=== PATIENT | male | born 1950 | race Caucasian/White ===

== ENCOUNTER 2018-04-10 18:43 | Inpatient (IN) ==
--- NOTE | 2018-04-10 19:19 | ED ---
HPI General Chief Complaint: Chest Pain Stated Complaint: Heart/Chest Complaint Time Seen by Provider: 04/10/18 19:16 Source: patient and family () Mode of arrival: ambulatory Limitations: no limitations History of Present Illness HPI narrative: 67-year-old male came to the emergency room brought by his with history of sudden onset chest pain radiating to his back and down both his arms. Patient says that this started half an hour prior to arrival. He has extensive history of coronary artery disease and it felt like his heart attack. Patient says that his last heart attack and stent placement was somewhere around 2006. He says he has 12 stents in his heart as well as carotid artery. Patient is a smoker 1 pack/day. He takes aspirin and clopidogrel among other medications but takes all these medications at night. He says that he did not take his medications yet. Currently he describes his pain as pressure and achiness of both arms. The pain is 8 out of 10. No history of shortness of breath or lightheadedness. Patient is from [place] and is here in [place] for 6 months. He does not have any physicians in the area locally and has never been to [facility] before. 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 Patient was hypertensive upon arrival. When I was in the room the monitoring and evaluation advisor had his blood pressure is 185/105. Related Data Home Medications Medication Instructions Recorded Confirmed calcium carbonate-vitamin D3 1 tab PO DAILY 04/10/18 04/10/18 [Calcium 600 + D(3)] hydrocodone-acetaminophen 1 tab PO Q6H 04/10/18 04/10/18 metoprolol succinate 25 mg PO DAILY 04/10/18 04/10/18 pantoprazole 40 mg PO DAILY 04/10/18 04/10/18 pravastatin 80 mg PO DAILY 04/10/18 04/10/18 sertraline 50 mg PO DAILY 04/10/18 04/10/18 Allergies Allergy/AdvReac Type Severity Reaction Status Date / Time No Known Allergies Allergy Verified 04/10/18 18:50 Review of Systems ROS: all other systems reviewed are negative Cardiovascular Reports chest pain PMFSH History History Provided By: Patient and Family Member () Medical History Medical History Hepatitis C (Acute) Surgical History Surgical History H/O heart artery stent (Acute) Social History Social History Substance History: No History of Abuse Second Hand Smoke Exposure: Yes Smoking Status: Current every day smoker Tobacco Type: Cigarettes How Often Do You Have a Drink Containing Alcohol: Never Exam Narrative Exam Narrative: GENERAL: Awake, alert, anxious, moderate distress SKIN: Focused skin assessment warm/dry. HEAD: Atraumatic. Normocephalic. EYES: Pupils equal and round. No scleral icterus. No injection or drainage. ENT: No nasal bleeding or discharge. Mucous membranes pink and moist. NECK: Trachea midline. No JVD. CARDIOVASCULAR: Regular rate and rhythm. No murmur appreciated. RESPIRATORY: No accessory muscle use. Clear to auscultation. Breath sounds equal bilaterally. GASTROINTESTINAL: Abdomen soft, non-tender, nondistended. Hepatic and splenic margins not palpable. MUSCULOSKELETAL: No obvious deformities. No clubbing. No cyanosis. No edema. NEUROLOGICAL: Awake and alert. No obvious cranial nerve deficits. Motor grossly within normal limits. Normal speech. PSYCHIATRIC: Appropriate mood and affect; insight and judgment normal. Course Initial Documented Vital Signs Temperature 97.3 F L 04/10/18 18:47 Pulse Rate 59 L 04/10/18 18:47 Respiratory Rate 21 04/10/18 18:47 Blood Pressure 178/113 H 04/10/18 18:47 Pulse Oximetry 100 04/10/18 18:47 Last Documented Vital Signs Temperature 98 F 04/13/18 03:36 Pulse Rate 56 L 04/13/18 16:00 Respiratory Rate 20 04/13/18 12:00 Blood Pressure 114/46 L 04/13/18 12:00 Pulse Oximetry 98 04/13/18 03:36 Critical Care Time Critical Care Time: Yes Total Critical Care Time: 45 Attestation: Aggregate critical care time was 45 minutes. Time to perform other separately billable procedures was not included in the critical care time. My time did not include minutes spent treating any other patients simultaneously or on activities that did not directly contribute to the patient's treatment. The services I provided to this patient were to treat and/or prevent clinically significant deterioration that could result in: Chest pain, non-STEMI, nitro drip, heparin bolus and drip I provided critical care services requiring my management, as noted below: Chart data review, documentation time, medication orders and management, vital sign assessments/reviewing monitor data, ordering and reviewing lab tests, ordering and interpreting/reviewing x-rays and diagnostic studies, care of the patient and discussion of the patient with the admitting physicians. Quality Measure Queries AMI Clinical Trial Participant: No ECG initial impression date: 04/10/18 (Twelve-lead EKG was reviewed by me. Normal sinus rhythm, bigeminy, questionable anterior septal ST elevations of the [place] lead. Repeat EKG. Heart rate of 73 bpm.) ECG initial impression time: 19:59 Medical Decision Making MDM Narrative Medical decision making narrative: 7:59 PM after reviewing the repeat EKG that was done at 19:25 I called in for a STEMI alert given the abnormal EKG as well as the description of his pain and the significant past medical history. I electronically sent the EKG photograph to Dr. Head who is on-call for STEMI alerts. He called back and after discussion he did not think the ST elevations met the criteria for stat Laboratory Sample Carrier. He wanted to cancel the STEMI alert but start the patient on nitro and heparin drip and admit to [facility]. N.p.o. after midnight for catheterization tomorrow. I discussed this with the patient and his and they understand. Awaiting for the blood test results. 8:12 PM current blood pressure is 135/75 and chest pain is down to 3 out of 10. I asked for a repeat EKG and the deep T wave inversions in V2, V3, V4 continues and pronounced in V5 at this point. Patient remains hemodynamically stable. Awaiting for the blood test result. Medical Screen Exam Complete: Yes Emergency Medical Condition: Yes Lab Data Result diagrams: 04/13/18 06:34 04/11/18 02:30 Lab Results 04/10/18 04/10/18 04/10/18 Range/Units 19:30 19:30 19:30 WBC 9.6 (4.0-11.0) th/mm3 RBC 4.78 (4.50-5.90) mil/mm3 Hgb 14.5 (13.0-17.0) gm/dL POC Hgb (Calc) 15.0 (13.0-17.0) g/dL Hct 42.9 (39.0-51.0) % POC Hct 44.0 (39-51.0) % MCV 89.8 (80.0-100.0) fL MCH 30.3 (27.0-34.0) pg MCHC 33.8 (32.0-36.0) % RDW 15.4 (11.6-17.2) % Plt Count 351 (150-450) th/mm3 MPV 8.7 (7.0-11.0) fL Neut % (Auto) 53.9 (16.0-70.0) % Lymph % (Auto) 30.9 (9.0-44.0) % Love % (Auto) 12.1 H (0.0-8.0) % Eos % (Auto) 2.3 (0.0-4.0) % Baso % (Auto) 0.8 (0.0-2.0) % Neut # (Auto) 5.2 (1.8-7.7) th/mm3 Lymph # (Auto) 3.0 (1.0-4.8) th/mm3 Love # (Auto) 1.2 H (0.0-0.9) th/mm3 Eos # (Auto) 0.2 (0.0-0.4) th/mm3 Baso # (Auto) 0.1 (0.0-0.2) th/mm3 WBC Differential . Differential Comment Auto diff final PT 11.1 (9.8-11.6) sec INR 1.1 Ratio APTT 28.9 (23.4-31.7) sec Plt Funct P2Y12 Units (194-418) PRU POC Sodium 138 (137-144) mmol/L Sodium 136 (136-145) meq/L POC Potassium 3.8 (3.6-5.0) mmol/L Potassium 3.7 (3.5-5.1) meq/L POC Chloride 100 L (102-111) mmol/L Chloride 102 (98-107) meq/L Carbon Dioxide 24.4 (21.0-32.0) meq/L Anion Gap 10 (5-15) meq/L POC BUN 8 (5-21) mg/dL BUN 9 (7-18) mg/dL Creatinine 0.81 (0.60-1.30) mg/dL POC Creatinine 0.7 (0.6-1.3) mg/dL Estimated GFR Greater than 89 (>89) mL/min POC Glucose 116 H (68-110) mg/dL Random Glucose 108 H (74-106) mg/dL Hemoglobin A1c (4.3-6.0) % Calcium 8.7 (8.5-10.1) mg/dL Total Bilirubin 0.4 (0.2-1.0) mg/dL AST 15 (15-37) U/L ALT 19 (12-78) U/L Alkaline Phosphatase 119 H (45-117) U/L Troponin I Less than 0.02 L (0.02-0.05) ng/mL Total Protein 9.0 H (6.4-8.2) g/dL Albumin 3.3 L (3.4-5.0) g/dL Triglycerides (42-150) mg/dL Cholesterol (120-200) mg/dL LDL Cholesterol, Calc (0-99) mg/dL HDL Cholesterol (40.0-60.0) mg/dL Cholesterol/HDL Ratio Ratio Urine Color (Yellw/Straw) Urine Clarity (Clear) Urine pH (5.0-8.5) Ur Specific [place] (1.002-1.035) Urine Protein (Neg-Trace) mg/dL Urine Glucose (UA) (Negative) mg/dL Urine Ketones (Negative) mg/dL Urine Occult Blood (Negative) Urine Nitrate (Negative) Urine Bilirubin (Negative) Urine Urobilinogen (Less than 2) mg/dL Ur Leukocyte Esterase (Negative) Urine RBC (0-3) /hpf Urine WBC (0-5) /hpf Urine Mucus (Occasional) /lpf Micro UA Comment Ur Microscopic Review Urine Culture Comments Nasal Screen MRSA (PCR) (Negative) Blood Type Blood Type Recheck Antibody Screen 04/11/18 04/11/18 04/11/18 Range/Units 01:14 02:30 02:30 WBC 9.7 (4.0-11.0) th/mm3 RBC 4.50 (4.50-5.90) mil/mm3 Hgb 13.5 (13.0-17.0) gm/dL POC Hgb (Calc) (13.0-17.0) g/dL Hct 40.0 (39.0-51.0) % POC Hct (39-51.0) % MCV 89.0 (80.0-100.0) fL MCH 30.1 (27.0-34.0) pg MCHC 33.8 (32.0-36.0) % RDW 15.4 (11.6-17.2) % Plt Count 313 (150-450) th/mm3 MPV 8.7 (7.0-11.0) fL Neut % (Auto) 53.2 (16.0-70.0) % Lymph % (Auto) 30.6 (9.0-44.0) % Love % (Auto) 12.9 H (0.0-8.0) % Eos % (Auto) 2.7 (0.0-4.0) % Baso % (Auto) 0.6 (0.0-2.0) % Neut # (Auto) 5.2 (1.8-7.7) th/mm3 Lymph # (Auto) 3.0 (1.0-4.8) th/mm3 Love # (Auto) 1.3 H (0.0-0.9) th/mm3 Eos # (Auto) 0.3 (0.0-0.4) th/mm3 Baso # (Auto) 0.1 (0.0-0.2) th/mm3 WBC Differential . Differential Comment Auto diff final PT (9.8-11.6) sec INR Ratio APTT 39.2 H D (23.4-31.7) sec Plt Funct P2Y12 Units (194-418) PRU POC Sodium (137-144) mmol/L Sodium 142 (136-145) meq/L POC Potassium (3.6-5.0) mmol/L Potassium 3.8 (3.5-5.1) meq/L POC Chloride (102-111) mmol/L Chloride 109 H (98-107) meq/L Carbon Dioxide 28.6 (21.0-32.0) meq/L Anion Gap 4 L (5-15) meq/L POC BUN (5-21) mg/dL BUN 8 (7-18) mg/dL Creatinine 0.66 (0.60-1.30) mg/dL POC Creatinine (0.6-1.3) mg/dL Estimated GFR Greater than 89 (>89) mL/min POC Glucose (68-110) mg/dL Random Glucose 94 (74-106) mg/dL Hemoglobin A1c (4.3-6.0) % Calcium 8.3 L (8.5-10.1) mg/dL Total Bilirubin 0.4 (0.2-1.0) mg/dL AST 14 L (15-37) U/L ALT 16 (12-78) U/L Alkaline Phosphatase 104 (45-117) U/L Troponin I 0.56 H (0.02-0.05) ng/mL Total Protein 7.9 D (6.4-8.2) g/dL Albumin 2.9 L (3.4-5.0) g/dL Triglycerides 99 (42-150) mg/dL Cholesterol 113 L (120-200) mg/dL LDL Cholesterol, Calc 61 (0-99) mg/dL HDL Cholesterol 32.6 L (40.0-60.0) mg/dL Cholesterol/HDL Ratio 3.46 Ratio Urine Color (Yellw/Straw) Urine Clarity (Clear) Urine pH (5.0-8.5) Ur Specific [place] (1.002-1.035) Urine Protein (Neg-Trace) mg/dL Urine Glucose (UA) (Negative) mg/dL Urine Ketones (Negative) mg/dL Urine Occult Blood (Negative) Urine Nitrate (Negative) Urine Bilirubin (Negative) Urine Urobilinogen (Less than 2) mg/dL Ur Leukocyte Esterase (Negative) Urine RBC (0-3) /hpf Urine WBC (0-5) /hpf Urine Mucus (Occasional) /lpf Micro UA Comment Ur Microscopic Review Urine Culture Comments Nasal Screen MRSA (PCR) (Negative) Blood Type Blood Type Recheck Antibody Screen 04/11/18 04/11/18 04/11/18 Range/Units 07:59 07:59 23:12 WBC (4.0-11.0) th/mm3 RBC (4.50-5.90) mil/mm3 Hgb (13.0-17.0) gm/dL POC Hgb (Calc) (13.0-17.0) g/dL Hct (39.0-51.0) % POC Hct (39-51.0) % MCV (80.0-100.0) fL MCH (27.0-34.0) pg MCHC (32.0-36.0) % RDW (11.6-17.2) % Plt Count (150-450) th/mm3 MPV (7.0-11.0) fL Neut % (Auto) (16.0-70.0) % Lymph % (Auto) (9.0-44.0) % Love % (Auto) (0.0-8.0) % Eos % (Auto) (0.0-4.0) % Baso % (Auto) (0.0-2.0) % Neut # (Auto) (1.8-7.7) th/mm3 Lymph # (Auto) (1.0-4.8) th/mm3 Love # (Auto) (0.0-0.9) th/mm3 Eos # (Auto) (0.0-0.4) th/mm3 Baso # (Auto) (0.0-0.2) th/mm3 WBC Differential Differential Comment PT (9.8-11.6) sec INR Ratio APTT 37.6 H 44.9 H (23.4-31.7) sec Plt Funct P2Y12 Units (194-418) PRU POC Sodium (137-144) mmol/L Sodium (136-145) meq/L POC Potassium (3.6-5.0) mmol/L Potassium (3.5-5.1) meq/L POC Chloride (102-111) mmol/L Chloride (98-107) meq/L Carbon Dioxide (21.0-32.0) meq/L Anion Gap (5-15) meq/L POC BUN (5-21) mg/dL BUN (7-18) mg/dL Creatinine (0.60-1.30) mg/dL POC Creatinine (0.6-1.3) mg/dL Estimated GFR (>89) mL/min POC Glucose (68-110) mg/dL Random Glucose (74-106) mg/dL Hemoglobin A1c (4.3-6.0) % Calcium (8.5-10.1) mg/dL Total Bilirubin (0.2-1.0) mg/dL AST (15-37) U/L ALT (12-78) U/L Alkaline Phosphatase (45-117) U/L Troponin I 0.39 H (0.02-0.05) ng/mL Total Protein (6.4-8.2) g/dL Albumin (3.4-5.0) g/dL Triglycerides (42-150) mg/dL Cholesterol (120-200) mg/dL LDL Cholesterol, Calc (0-99) mg/dL HDL Cholesterol (40.0-60.0) mg/dL Cholesterol/HDL Ratio Ratio Urine Color (Yellw/Straw) Urine Clarity (Clear) Urine pH (5.0-8.5) Ur Specific [place] (1.002-1.035) Urine Protein (Neg-Trace) mg/dL Urine Glucose (UA) (Negative) mg/dL Urine Ketones (Negative) mg/dL Urine Occult Blood (Negative) Urine Nitrate (Negative) Urine Bilirubin (Negative) Urine Urobilinogen (Less than 2) mg/dL Ur Leukocyte Esterase (Negative) Urine RBC (0-3) /hpf Urine WBC (0-5) /hpf Urine Mucus (Occasional) /lpf Micro UA Comment Ur Microscopic Review Urine Culture Comments Nasal Screen MRSA (PCR) (Negative) Blood Type Blood Type Recheck Antibody Screen 04/12/18 04/12/18 04/12/18 Range/Units 08:55 08:55 16:56 WBC 8.2 (4.0-11.0) th/mm3 RBC 4.59 (4.50-5.90) mil/mm3 Hgb 13.8 (13.0-17.0) gm/dL POC Hgb (Calc) (13.0-17.0) g/dL Hct 42.3 (39.0-51.0) % POC Hct (39-51.0) % MCV 92.2 (80.0-100.0) fL MCH 30.1 (27.0-34.0) pg MCHC 32.7 (32.0-36.0) % RDW 15.4 (11.6-17.2) % Plt Count 296 (150-450) th/mm3 MPV 9.4 (7.0-11.0) fL Neut % (Auto) (16.0-70.0) % Lymph % (Auto) (9.0-44.0) % Love % (Auto) (0.0-8.0) % Eos % (Auto) (0.0-4.0) % Baso % (Auto) (0.0-2.0) % Neut # (Auto) (1.8-7.7) th/mm3 Lymph # (Auto) (1.0-4.8) th/mm3 Love # (Auto) (0.0-0.9) th/mm3 Eos # (Auto) (0.0-0.4) th/mm3 Baso # (Auto) (0.0-0.2) th/mm3 WBC Differential Differential Comment PT (9.8-11.6) sec INR Ratio APTT 26.6 D 45.5 H D (23.4-31.7) sec Plt Funct P2Y12 Units (194-418) PRU POC Sodium (137-144) mmol/L Sodium (136-145) meq/L POC Potassium (3.6-5.0) mmol/L Potassium (3.5-5.1) meq/L POC Chloride (102-111) mmol/L Chloride (98-107) meq/L Carbon Dioxide (21.0-32.0) meq/L Anion Gap (5-15) meq/L POC BUN (5-21) mg/dL BUN (7-18) mg/dL Creatinine (0.60-1.30) mg/dL POC Creatinine (0.6-1.3) mg/dL Estimated GFR (>89) mL/min POC Glucose (68-110) mg/dL Random Glucose (74-106) mg/dL Hemoglobin A1c (4.3-6.0) % Calcium (8.5-10.1) mg/dL Total Bilirubin (0.2-1.0) mg/dL AST (15-37) U/L ALT (12-78) U/L Alkaline Phosphatase (45-117) U/L Troponin I (0.02-0.05) ng/mL Total Protein (6.4-8.2) g/dL Albumin (3.4-5.0) g/dL Triglycerides (42-150) mg/dL Cholesterol (120-200) mg/dL LDL Cholesterol, Calc (0-99) mg/dL HDL Cholesterol (40.0-60.0) mg/dL Cholesterol/HDL Ratio Ratio Urine Color (Yellw/Straw) Urine Clarity (Clear) Urine pH (5.0-8.5) Ur Specific [place] (1.002-1.035) Urine Protein (Neg-Trace) mg/dL Urine Glucose (UA) (Negative) mg/dL Urine Ketones (Negative) mg/dL Urine Occult Blood (Negative) Urine Nitrate (Negative) Urine Bilirubin (Negative) Urine Urobilinogen (Less than 2) mg/dL Ur Leukocyte Esterase (Negative) Urine RBC (0-3) /hpf Urine WBC (0-5) /hpf Urine Mucus (Occasional) /lpf Micro UA Comment Ur Microscopic Review Urine Culture Comments Nasal Screen MRSA (PCR) (Negative) Blood Type Blood Type Recheck Antibody Screen 04/12/18 04/13/18 04/13/18 Range/Units 22:36 06:34 06:34 WBC 9.3 (4.0-11.0) th/mm3 RBC 4.49 L (4.50-5.90) mil/mm3 Hgb 13.8 (13.0-17.0) gm/dL POC Hgb (Calc) (13.0-17.0) g/dL Hct 40.6 (39.0-51.0) % POC Hct (39-51.0) % MCV 90.4 (80.0-100.0) fL MCH 30.7 (27.0-34.0) pg MCHC 34.0 (32.0-36.0) % RDW 15.2 (11.6-17.2) % Plt Count 295 (150-450) th/mm3 MPV 8.9 (7.0-11.0) fL Neut % (Auto) (16.0-70.0) % Lymph % (Auto) (9.0-44.0) % Love % (Auto) (0.0-8.0) % Eos % (Auto) (0.0-4.0) % Baso % (Auto) (0.0-2.0) % Neut # (Auto) (1.8-7.7) th/mm3 Lymph # (Auto) (1.0-4.8) th/mm3 Love # (Auto) (0.0-0.9) th/mm3 Eos # (Auto) (0.0-0.4) th/mm3 Baso # (Auto) (0.0-0.2) th/mm3 WBC Differential Differential Comment PT (9.8-11.6) sec INR Ratio APTT 38.3 H 50.7 H D (23.4-31.7) sec Plt Funct P2Y12 Units (194-418) PRU POC Sodium (137-144) mmol/L Sodium (136-145) meq/L POC Potassium (3.6-5.0) mmol/L Potassium (3.5-5.1) meq/L POC Chloride (102-111) mmol/L Chloride (98-107) meq/L Carbon Dioxide (21.0-32.0) meq/L Anion Gap (5-15) meq/L POC BUN (5-21) mg/dL BUN (7-18) mg/dL Creatinine (0.60-1.30) mg/dL POC Creatinine (0.6-1.3) mg/dL Estimated GFR (>89) mL/min POC Glucose (68-110) mg/dL Random Glucose (74-106) mg/dL Hemoglobin A1c (4.3-6.0) % Calcium (8.5-10.1) mg/dL Total Bilirubin (0.2-1.0) mg/dL AST (15-37) U/L ALT (12-78) U/L Alkaline Phosphatase (45-117) U/L Troponin I (0.02-0.05) ng/mL Total Protein (6.4-8.2) g/dL Albumin (3.4-5.0) g/dL Triglycerides (42-150) mg/dL Cholesterol (120-200) mg/dL LDL Cholesterol, Calc (0-99) mg/dL HDL Cholesterol (40.0-60.0) mg/dL Cholesterol/HDL Ratio Ratio Urine Color (Yellw/Straw) Urine Clarity (Clear) Urine pH (5.0-8.5) Ur Specific [place] (1.002-1.035) Urine Protein (Neg-Trace) mg/dL Urine Glucose (UA) (Negative) mg/dL Urine Ketones (Negative) mg/dL Urine Occult Blood (Negative) Urine Nitrate (Negative) Urine Bilirubin (Negative) Urine Urobilinogen (Less than 2) mg/dL Ur Leukocyte Esterase (Negative) Urine RBC (0-3) /hpf Urine WBC (0-5) /hpf Urine Mucus (Occasional) /lpf Micro UA Comment Ur Microscopic Review Urine Culture Comments Nasal Screen MRSA (PCR) (Negative) Blood Type Blood Type Recheck Antibody Screen 04/13/18 04/13/18 04/13/18 Range/Units 10:05 10:05 10:05 WBC (4.0-11.0) th/mm3 RBC (4.50-5.90) mil/mm3 Hgb (13.0-17.0) gm/dL POC Hgb (Calc) (13.0-17.0) g/dL Hct (39.0-51.0) % POC Hct (39-51.0) % MCV (80.0-100.0) fL MCH (27.0-34.0) pg MCHC (32.0-36.0) % RDW (11.6-17.2) % Plt Count (150-450) th/mm3 MPV (7.0-11.0) fL Neut % (Auto) (16.0-70.0) % Lymph % (Auto) (9.0-44.0) % Love % (Auto) (0.0-8.0) % Eos % (Auto) (0.0-4.0) % Baso % (Auto) (0.0-2.0) % Neut # (Auto) (1.8-7.7) th/mm3 Lymph # (Auto) (1.0-4.8) th/mm3 Love # (Auto) (0.0-0.9) th/mm3 Eos # (Auto) (0.0-0.4) th/mm3 Baso # (Auto) (0.0-0.2) th/mm3 WBC Differential Differential Comment PT (9.8-11.6) sec INR Ratio APTT (23.4-31.7) sec Plt Funct P2Y12 Units 257 (194-418) PRU POC Sodium (137-144) mmol/L Sodium (136-145) meq/L POC Potassium (3.6-5.0) mmol/L Potassium (3.5-5.1) meq/L POC Chloride (102-111) mmol/L Chloride (98-107) meq/L Carbon Dioxide (21.0-32.0) meq/L Anion Gap (5-15) meq/L POC BUN (5-21) mg/dL BUN (7-18) mg/dL Creatinine (0.60-1.30) mg/dL POC Creatinine (0.6-1.3) mg/dL Estimated GFR (>89) mL/min POC Glucose (68-110) mg/dL Random Glucose (74-106) mg/dL Hemoglobin A1c 5.9 (4.3-6.0) % Calcium (8.5-10.1) mg/dL Total Bilirubin (0.2-1.0) mg/dL AST (15-37) U/L ALT (12-78) U/L Alkaline Phosphatase (45-117) U/L Troponin I (0.02-0.05) ng/mL Total Protein (6.4-8.2) g/dL Albumin (3.4-5.0) g/dL Triglycerides (42-150) mg/dL Cholesterol (120-200) mg/dL LDL Cholesterol, Calc (0-99) mg/dL HDL Cholesterol (40.0-60.0) mg/dL Cholesterol/HDL Ratio Ratio Urine Color (Yellw/Straw) Urine Clarity (Clear) Urine pH (5.0-8.5) Ur Specific [place] (1.002-1.035) Urine Protein (Neg-Trace) mg/dL Urine Glucose (UA) (Negative) mg/dL Urine Ketones (Negative) mg/dL Urine Occult Blood (Negative) Urine Nitrate (Negative) Urine Bilirubin (Negative) Urine Urobilinogen (Less than 2) mg/dL Ur Leukocyte Esterase (Negative) Urine RBC (0-3) /hpf Urine WBC (0-5) /hpf Urine Mucus (Occasional) /lpf Micro UA Comment Ur Microscopic Review Urine Culture Comments Nasal Screen MRSA (PCR) (Negative) Blood Type A Positive Blood Type Recheck Required Antibody Screen Negative 04/13/18 04/13/18 04/13/18 Range/Units 10:30 10:35 13:56 WBC (4.0-11.0) th/mm3 RBC (4.50-5.90) mil/mm3 Hgb (13.0-17.0) gm/dL POC Hgb (Calc) (13.0-17.0) g/dL Hct (39.0-51.0) % POC Hct (39-51.0) % MCV (80.0-100.0) fL MCH (27.0-34.0) pg MCHC (32.0-36.0) % RDW (11.6-17.2) % Plt Count (150-450) th/mm3 MPV (7.0-11.0) fL Neut % (Auto) (16.0-70.0) % Lymph % (Auto) (9.0-44.0) % Love % (Auto) (0.0-8.0) % Eos % (Auto) (0.0-4.0) % Baso % (Auto) (0.0-2.0) % Neut # (Auto) (1.8-7.7) th/mm3 Lymph # (Auto) (1.0-4.8) th/mm3 Love # (Auto) (0.0-0.9) th/mm3 Eos # (Auto) (0.0-0.4) th/mm3 Baso # (Auto) (0.0-0.2) th/mm3 WBC Differential Differential Comment PT (9.8-11.6) sec INR Ratio APTT 38.2 H D (23.4-31.7) sec Plt Funct P2Y12 Units (194-418) PRU POC Sodium (137-144) mmol/L Sodium (136-145) meq/L POC Potassium (3.6-5.0) mmol/L Potassium (3.5-5.1) meq/L POC Chloride (102-111) mmol/L Chloride (98-107) meq/L Carbon Dioxide (21.0-32.0) meq/L Anion Gap (5-15) meq/L POC BUN (5-21) mg/dL BUN (7-18) mg/dL Creatinine (0.60-1.30) mg/dL POC Creatinine (0.6-1.3) mg/dL Estimated GFR (>89) mL/min POC Glucose (68-110) mg/dL Random Glucose (74-106) mg/dL Hemoglobin A1c (4.3-6.0) % Calcium (8.5-10.1) mg/dL Total Bilirubin (0.2-1.0) mg/dL AST (15-37) U/L ALT (12-78) U/L Alkaline Phosphatase (45-117) U/L Troponin I (0.02-0.05) ng/mL Total Protein (6.4-8.2) g/dL Albumin (3.4-5.0) g/dL Triglycerides (42-150) mg/dL Cholesterol (120-200) mg/dL LDL Cholesterol, Calc (0-99) mg/dL HDL Cholesterol (40.0-60.0) mg/dL Cholesterol/HDL Ratio Ratio Urine Color Yellow (Yellw/Straw) Urine Clarity Clear (Clear) Urine pH 6.0 (5.0-8.5) Ur Specific [place] 1.031 (1.002-1.035) Urine Protein Negative (Neg-Trace) mg/dL Urine Glucose (UA) Negative (Negative) mg/dL Urine Ketones Negative (Negative) mg/dL Urine Occult Blood Negative (Negative) Urine Nitrate Negative (Negative) Urine Bilirubin Negative (Negative) Urine Urobilinogen Less than 2 (Less than 2) mg/dL Ur Leukocyte Esterase Negative (Negative) Urine RBC 1 (0-3) /hpf Urine WBC 1 (0-5) /hpf Urine Mucus Few H (Occasional) /lpf Micro UA Comment Culture not ind Ur Microscopic Review Not Reportable Urine Culture Comments Culture not ind Nasal Screen MRSA (PCR) Not detected (Negative) Blood Type Blood Type Recheck Antibody Screen Imaging Data Radiologist's impression: Chest X-Ray 04/10/18 18:51 CONCLUSION: Mild diffuse bilateral interstitial opacities age indeterminate but most likely chronic. Hyperexpanded lungs. Carotid Doppler Study 04/13/18 08:37 CONCLUSION: Negative examination for a hemodynamically significant carotid stenosis. Abundant plaque makes dose of emboli likely possibility. Jordan Tay MD FACR Lower Extremity Ultrasound 04/13/18 08:37 CONCLUSION: 1. Venous mapping as above. Venous Doppler Study 04/13/18 08:37 CONCLUSION: 1. No DVT identified within either lower extremity. ECG Data EKG Prior to Arrival: No Attestation: I personally reviewed and interpreted this ECG as follows: Interpretation: Twelve-lead EKG done at 19: 25 was reviewed by me. Normal sinus rhythm, normal axis, bradycardia, ST elevation half a box in V1 and V2 with T wave inversion and ST depression with T wave inversion in V3 and V4, bradycardia. Heart rate of 54 bpm Discharge Plan Discharge Disposition Patient Disposition: 30 Still Patient Discharge Condition Condition: Serious Discharge Order Discharge Orders: AMA Discharge (Routine); Ordered 04/13/18 Ordered By: Jose David Aguirre Discharge Details Anticipated Discharge Date: 04/13/18 Physicians Team ED Provider: Clint Headley Primary Care Provider: UNKNOWN, Attending Provider: Jose David Aguirre Other Providers: Dante Head Cary Status ED Status: Left Department Discharge Information Discharge Date/Time: 04/10/18 22:11
--- NOTE | 2018-04-10 19:30 | XR ---
EXAM DATE: 04/10/2018 7:19 PM EST AGE/SEX: 67 years / Male INDICATIONS: . Chest pain. CLINICAL DATA: This is the patient's initial encounter. Patient reports that signs and symptoms have been present for 1 day and indicates a pain score of 9/10. MEDICAL/SURGICAL HISTORY: Myocardial infarction. . Cardiac stent. COMPARISON: No prior exams available for comparison. FINDINGS: Mild, diffuse interstitial opacities are seen of both lungs. No dense/confluent consolidation demonst rated. No pleural effusion or pneumothorax. Lungs are hyperexpanded. Heart size within normal limits. There is a right subclavian stent. CONCLUSION: Mild diffuse bilateral interstitial opacities age indeterminate but most likely chronic. Hyperexpande d lungs. Electronically signed by: Jonathan Higgins MD 04/10/2018 7:28 PM EST
[2018-04-10] MEDS ORDERED: Nitroglycerin Drip Premix 50 MG/250 ML BOTTLE IV.CONT PRN (19:32)
[2018-04-10] MEDS ORDERED: Heparin 10,000 UNITS/10 ML Vial (for IV use) IV.PUSH STA (19:36)
[2018-04-10 19:53] LABS: Baso # (Auto) 0.1 th/mm3 (0.0-0.2); Baso % (Auto) 0.8 % (0.0-2.0); Eos # (Auto) 0.2 th/mm3 (0.0-0.4); Eos % (Auto) 2.3 % (0.0-4.0); Hematocrit 42.9 % (39.0-51.0); Hemoglobin 14.5 gm/dL (13.0-17.0); Lymph % (Auto) 30.9 % (9.0-44.0); Mean Corpuscular HGB Conc 33.8 % (32.0-36.0); Mean Corpuscular Hemoglobin 30.3 pg (27.0-34.0); Mean Corpuscular Volume 89.8 fL (80.0-100.0); Mean Platelet Volume 8.7 fL (7.0-11.0); Mono # (Auto) 1.2 th/mm3 (0.0-0.9); Mono % (Auto) 12.1 % (0.0-8.0); Neut # (Auto) 5.2 th/mm3 (1.8-7.7); Neut % (Auto) 53.9 % (16.0-70.0); Platelet Count 351 th/mm3 (150-450); Red Blood Count 4.78 mil/mm3 (4.50-5.90); Red Cell Distribution Width 15.4 % (11.6-17.2); White Blood Count 9.6 th/mm3 (4.0-11.0)
[2018-04-10 20:03] LABS: Activated Partial Thrombo Time 28.9 sec (23.4-31.7); INR 1.1 Ratio; Prothrombin Time 11.1 sec (9.8-11.6)
[2018-04-10 20:11] LABS: Albumin 3.3 g/dL (3.4-5.0); Anion Gap 10 meq/L (5-15); Aspartate Aminotransferase 15 U/L (15-37); Blood Urea Nitrogen 9 mg/dL (7-18); Calcium 8.7 mg/dL (8.5-10.1); Carbon Dioxide 24.4 meq/L (21.0-32.0); Chloride 102 meq/L (98-107); Glomerular Filtration Rate Greater Than 89 mL/min (>89); Glucose,Random 108 mg/dL (74-106); Potassium 3.7 meq/L (3.5-5.1); Sodium 136 meq/L (136-145)
[2018-04-10 20:12] LABS: Alanine Aminotransferase 19 U/L (12-78)
[2018-04-10 20:15] LABS: Alkaline Phosphatase 119 U/L (45-117)
[2018-04-10] MEDS ORDERED: Acetaminophen 325 MG Tablet PO PRN (20:42)
[2018-04-10] MEDS ORDERED: Bisacodyl 10 MG Supp RECTAL PRN (20:42)
[2018-04-10] MEDS ORDERED: Morphine Sulfate Inj 2 MG/ML Vial IV.PUSH PRN (20:43)
--- NOTE | 2018-04-10 20:45 | P.HPIM ---
History of Present Illness Primary Care Physician: UNKNOWN History of Present Illness: This is a 67-year-old male with a PMH of HTN, CAD s/p Stent x12, Tobacco Abuse and h/o Hepatitis C who was brought to the ER for c/o chest pain. Pt reports sudden onset of substernal chest pain approx 30min prior to arrival, pain is moderate-severe, 8/10, w/ radiating to back and bilateral arms, +associated SOB. Lives in [place] and follows w/ Town Administrator back home, last stent approx 2006. On arrival, BP 178/113, HR 59, O2 sat 100% on RA, Afebrile. CBC unremarkable. INR 1.1. Chemistry unremarkable. Troponin negative. CXR with mild diffuse bilateral interstitial opacities likely chronic. Initial EKG noted to have ST elevations, STEMI Alert initiated by ER doc, however cancelled after eval by Dr. Head. Plan is for Heparin/NTG gtt and NPO for cath in am. Pt currently chest pain free on NTG - Diagnosis (1) ACS (acute coronary syndrome) (2) Chest pain (3) HTN (hypertension) (4) Tobacco abuse Inpatient Certification: I certify that the inpatient services were ordered in accordance with Medicare regulations governing the order. This includes certification that hospital inpatient services are reasonable and necessary and in the case of services not specified as inpatient-only under 42 CFR 419.22(n), that they are appropriately provided as inpatient services in accordance to with the 2-midnight benchmark under 43 CFR 412.3(e) Estimated Total Length of Stay (Days): 2 Plans for Post Hospital Care: Not yet determined Review of Systems PAST FAMILY HISTORY: Reviewed. No h/o DM or CAD All other systems reviewed negative except as stated in HPI [facility] - History History Provided By: Patient, Family Member () - Medical History Medical History: Medical History (Last Reviewed 04/10/18 @ 19:56 by Clint Headley MD) Hepatitis C - Surgical History Surgical History: Surgical History (Last Reviewed 04/10/18 @ 19:56 by Clint Headley MD) H/O heart artery stent - Tobacco History Second Hand Smoke Exposure: Yes Tobacco Use In Past 30 Days: Yes Smoking Status: Current every day smoker Tobacco Type: Cigarettes - Alcohol History How Often Do You Have a Drink Containing Alcohol: Never - Substance Use History Substance History: No History of Abuse - Travel History Recent Travel in the [place] Within the Last 8 Weeks: No Recent Travel Out of the Country Within the Last 8 Weeks: No - Immunization History Tetanus Immunization: <5 Years Medications and Allergies Active Medications: Active Medications Nitroglycerin/Dextrose (Nitroglycerin Drip Premix) 50 mg in 250 mls @ 0 mls/hr IV.CONT TITRATE PRN; Protocol PRN Reason: Per Protocol Last Admin: 04/10/18 20:02 Dose: 5 mcg/min, 1.5 mls/hr Heparin Sodium/Dextrose (Heparin/D5w 25,000 U/250 Ml) 25,000 unit in 250 mls @ 0 mls/hr IV.CONT TITRATE PRN; Protocol PRN Reason: Per Protocol Allergies Allergy/AdvReac Type Severity Reaction Status Date / Time No Known Allergies Allergy Verified 04/10/18 18:50 Home Medications Medication Instructions Recorded Confirmed Type aspirin [Aspir-81] 81 mg PO DAILY 04/10/18 04/10/18 History calcium carbonate-vitamin D3 1 tab PO DAILY 04/10/18 04/10/18 History [Calcium 600 + D(3)] clopidogrel 75 mg PO DAILY 04/10/18 04/10/18 History hydrocodone-acetaminophen 1 tab PO Q6H 04/10/18 04/10/18 History lisinopril 5 mg PO DAILY 04/10/18 04/10/18 History metoprolol succinate 25 mg PO DAILY 04/10/18 04/10/18 History pantoprazole 40 mg PO DAILY 04/10/18 04/10/18 History pravastatin 80 mg PO DAILY 04/10/18 04/10/18 History sertraline 50 mg PO DAILY 04/10/18 04/10/18 History Exam Vital signs: Vital Signs 04/10/18 18:47 04/10/18 19:31 04/10/18 19:50 Temperature 97.3 F L 98.4 F Pulse Rate 59 L 58 L 52 L Respiratory Rate 21 18 18 Blood Pressure 178/113 H 182/108 H 135/73 Pulse Oximetry 100 99 99 04/10/18 19:51 Temperature Pulse Rate Respiratory Rate 18 Blood Pressure Pulse Oximetry Intake & Output 04/10/18 04/10/18 04/11/18 06:59 18:59 06:59 Weight 79.379 kg Narrative: PE: GENERAL: Pleasant middle-aged white male in no acute distress. at bedside. SKIN: Focused skin assessment warm and dry. HEENT: PERRLA, EOMI. No scleral icterus or conjunctival pallor. No lid lag or facial droop. CARDIOVASCULAR: Regular rate and rhythm. No obvious murmurs to auscultation. No chest tenderness to palpation. RESPIRATORY: No obvious rhonchi or wheezing. Clear to auscultation. Breath sounds equal bilaterally. GASTROINTESTINAL: Abdomen soft, non-tender, nondistended. BS normal. MUSCULOSKELETAL: Extremities without clubbing, cyanosis, or edema. No obvious deformities. NEUROLOGICAL: Awake, alert and oriented x4. No focal neurologic deficits. Moving both upper and lower extremities spontaneously. PSYCHIATRIC: Appropriate mood and affect. Insight and judgment normal. Results - Labs CBC & Chem 7: 04/10/18 19:30 04/10/18 19:30 Labs: Short CBC 04/10/18 Range/Units 19:30 WBC 9.6 (4.0-11.0) th/mm3 Hgb 14.5 (13.0-17.0) gm/dL Hct 42.9 (39.0-51.0) % Plt Count 351 (150-450) th/mm3 BMP 04/10/18 19:30 Sodium 136 Potassium 3.7 Chloride 102 Carbon Dioxide 24.4 BUN 9 Creatinine 0.81 Calcium 8.7 Cardiac Enzymes 04/10/18 Range/Units 19:30 Troponin I Less than 0.02 L (0.02-0.05) ng/mL Liver Function 04/10/18 Range/Units 19:30 Total Bilirubin 0.4 (0.2-1.0) mg/dL AST 15 (15-37) U/L ALT 19 (12-78) U/L Alkaline Phosphatase 119 H (45-117) U/L Albumin 3.3 L (3.4-5.0) g/dL - Imaging Impressions Chest X-Ray 04/10/18 18:51 CONCLUSION: Mild diffuse bilateral interstitial opacities age indeterminate but most likely chronic. Hyperexpanded lungs. Caprini VTE Risk Assessment Caprini VTE Risk Assessment: Moderate/High Risk (score >= 2) Caprini Risk Assessment Model: Point Value = 1 Point Value = 2 Point Value = 3 Point Value = 5 Age 41-60 Minor surgery BMI > 25 kg/m2 Swollen legs Varicose veins or History of unexplained or recurrent spontaneous Oral contraceptives or hormone replacement Sepsis (< 1 month) Serious lung disease, including pneumonia (< 1 month) Abnormal pulmonary function Acute myocardial infarction Congestive heart failure (< 1 month) History of inflammatory bowel disease Medical patient at bed rest Age 61-74 Arthroscopic surgery Major open surgery (> 45 min) Laparoscopic surgery (> 45 min) Malignancy Confined to bed (> 72 hours) Immobilizing plaster cast Central venous access Age >= 75 History of VTE Family history of VTE Factor V Leiden Prothrombin [id number] Lupus anticoagulant Anticardiolipin antibodies Elevated serum homocysteine Heparin-induced thrombocytopenia Other congenital or acquired thrombophilia Stroke (< 1 month) Elective arthroplasty Hip, pelvis, or leg fracture Acute spinal cord injury (< 1 month) Prophylaxis Regimen: Total Risk Factor Score Risk Level Prophylaxis Regimen 0-1 Low Early ambulation 2 Moderate Order ONE of the following: *Sequential Compression Device (SCD) *Heparin 5000 units SQ BID 3-4 Higher Order ONE of the following medications: *Heparin 5000 units SQ TID *Enoxaparin/Lovenox 40 mg SQ daily (WT < 150 kg, CrCl > 30 mL/min) *Enoxaparin/Lovenox 30 mg SQ daily (WT < 150 kg, CrCl > 10-29 mL/min) *Enoxaparin/Lovenox 30 mg SQ BID (WT < 150 kg, CrCl > 30 mL/min) AND/OR *Sequential Compression Device (SCD) 5 or more Highest Order ONE of the following medications: *Heparin 5000 units SQ TID (Preferred with Epidurals) *Enoxaparin/Lovenox 40 mg SQ daily (WT < 150 kg, CrCl > 30 mL/min) *Enoxaparin/Lovenox 30 mg SQ daily (WT < 150 kg, CrCl > 10-29 mL/min) *Enoxaparin/Lovenox 30 mg SQ BID (WT < 150 kg, CrCl > 30 mL/min) AND *Sequential Compression Device (SCD) Assessment and Plan - Assessment (1) ACS (acute coronary syndrome) Code(s): I24.9 - Acute ischemic heart disease, unspecified Status: Acute (2) Chest pain Code(s): R07.9 - Chest pain, unspecified Status: Acute (3) HTN (hypertension) Code(s): I10 - Essential (primary) hypertension Status: Acute (4) Tobacco abuse Code(s): Z72.0 - Tobacco use Status: Acute - Plan A/P: 1. ACS: Initial EKG w/ ST elevations, STEMI alert initiated, however cancelled as did not meet criteria for emergent Cath. Repeat EKG w/ deep T wave inversions, Trop negative, currently on Heparin/NTG gtt per Cardiology. Dr. Head consulted. NPO for cath in am. Check serial cardiac enzymes. Telemetry 2. Chest Pain: c/o acute onset of chest pain, currently chest pain free on NTG gtt, will continue. 3. HTN: BP 180's on arrival, likely compounded by chest pain, monitor BP, antihypertensives as needed for BP >180 4. Tobacco Abuse: Pt counselled. No NicoDerm in light of acute ACS. Ativan prn if needed. 5. DVT Prophylaxis: Heparin gtt 6. Social work for d/c planning as needed. 7. Case discussed w/ ER physician at length, labs/records/imaging reviewed by me
[2018-04-10] MEDS: Heparin Drip 25,000 UNIT/250 ML BAG IV.CONT PRN (21:00)
--- NOTE | 2018-04-10 21:42 | ECG ---
Date Performed: 04/10/2018 Time Performed: 20:07:36 PTAGE: 67 years EKG: ELECTRONIC ATRIAL PACEMAKER POSSIBLE INFERIOR MYOCARDIAL INFARCTION Nonspecific T wave turcios ges ABNORMAL ECG Compared to prior electrocardiogram, Nonspecific T-wave changes are more marked. PREVIOUS TRACING : 04/10/2018 19.25 DOCTOR: Brayan Thomas Interpretating Date/Time 04/10/2018 21:41:49
--- NOTE | 2018-04-10 21:44 | ECG ---
Date Performed: 04/10/2018 Time Performed: 19:25:43 PTAGE: 67 years EKG: SINUS BRADYCARDIA WITH OCCASIONAL VENTRICULAR PREMATURE COMPLEXES PROBABLE INFERIOR MYOCARD IAL INFARCTION ABNORMAL ECG Compared to prior electrocardiogram, Nonspecific T-wave changes are more marked and Mild subtle anterior ST elevation is no longer present. PREVIOUS TRACING : 04/10/2018 18.55 DOCTOR: Brayan Thomas Interpretating Date/Time 04/10/2018 21:43:10
--- NOTE | 2018-04-10 21:45 | ECG ---
Date Performed: 04/10/2018 Time Performed: 18:55:39 PTAGE: 67 years EKG: Sinus rhythm WITH FREQUENT VENTRICULAR PREMATURE COMPLEXES POSSIBLE INFERIOR MYOCARDIAL INFARCTION Subtle anterio r ST elevation -clinical correlation suggested ABNORMAL ECG NO PREVIOUS TRACING DOCTOR: Brayan Thomas Interpretating Date/Time 04/10/2018 21:44:37
[2018-04-10] MEDS: Senna/Docusate Sodium 8.6/50 MG Tablet PO SCH (22:06)
[2018-04-10] MEDS: Sod Chloride 0.9% Inj 1,000 ML IV.CONT SCH (22:16)
[2018-04-11 02:49] LABS: Baso # (Auto) 0.1 th/mm3 (0.0-0.2); Baso % (Auto) 0.6 % (0.0-2.0); Eos # (Auto) 0.3 th/mm3 (0.0-0.4); Eos % (Auto) 2.7 % (0.0-4.0); Hemoglobin 13.5 gm/dL (13.0-17.0); Lymph % (Auto) 30.6 % (9.0-44.0); Mean Corpuscular HGB Conc 33.8 % (32.0-36.0); Mean Corpuscular Hemoglobin 30.1 pg (27.0-34.0); Mean Platelet Volume 8.7 fL (7.0-11.0); Mono # (Auto) 1.3 th/mm3 (0.0-0.9); Mono % (Auto) 12.9 % (0.0-8.0); Neut # (Auto) 5.2 th/mm3 (1.8-7.7); Neut % (Auto) 53.2 % (16.0-70.0); Platelet Count 313 th/mm3 (150-450); Red Cell Distribution Width 15.4 % (11.6-17.2); White Blood Count 9.7 th/mm3 (4.0-11.0)
[2018-04-11 03:10] LABS: Alanine Aminotransferase 16 U/L (12-78); Albumin 2.9 g/dL (3.4-5.0); Anion Gap 4 meq/L (5-15); Aspartate Aminotransferase 14 U/L (15-37); Blood Urea Nitrogen 8 mg/dL (7-18); Calcium 8.3 mg/dL (8.5-10.1); Carbon Dioxide 28.6 meq/L (21.0-32.0); Chloride 109 meq/L (98-107); Cholesterol 113 mg/dL (120-200); Glomerular Filtration Rate Greater Than 89 mL/min (>89); Glucose,Random 94 mg/dL (74-106); Potassium 3.8 meq/L (3.5-5.1); Sodium 142 meq/L (136-145); Triglycerides 99 mg/dL (42-150)
[2018-04-11 03:14] LABS: Alkaline Phosphatase 104 U/L (45-117); Chol/HDL Ratio 3.46 Ratio; HDL Cholesterol 32.6 mg/dL (40.0-60.0); LDL Cholesterol,Calculated 61 mg/dL (0-99); Total Protein 7.9 g/dL (6.4-8.2); Troponin I 0.56 ng/mL (0.02-0.05)
[2018-04-11] MEDS: Sod Chloride 0.9% Inj 1,000 ML IV.CONT SCH ×2 (06:07→17:14)
[2018-04-11] MEDS: Senna/Docusate Sodium 8.6/50 MG Tablet PO SCH ×2 (08:23→20:06)
--- NOTE | 2018-04-11 08:54 | P.CONCA ---
Addendum entered and electronically signed by GERTRUDE Gutierrez 04/11/18 09:09 : correction: will start atorvastatin 40mg (not 80mg) Original Note: History of Present Illness Service: cardiology Consult date: 04/11/18 Reason for Consult: chest pain Primary Care Provider: UNKNOWN Chief Complaint: chest pain History of Present Illness: 67 yo M with CAD and multiple prior stents "about a dozen" performed by his club room attendant in [place] (last PCI ~2006), HTN, hx of hepatitis C and current tobacco smoker presented with acute substernal chest pain "9/10" yesterday. He is visiting from [place], arrived 4 weeks ago and admits to having occasional exertional chest pain that has progressively worsened. Yesterday chest pain became "10/10" with radiation to jaw and numbness to bilateral arms, that improved somewhat after laying down. When he got up and started about his day symptoms returned. He then came to the ED where EKG was initially read with ST elevations, however this was incorrect and he did not meet criteria for STEMI. Subsequent EKGs have shown T wave inversion to precordial leads. symptoms improved with nitro. Troponin level <0.02 --> 0.56 --> 3rd lab pending. He is currently resting comfortably with "1/10" pain. He does state these symptoms are reminiscent of prior ME. Review of Systems All other systems reviewed negative except as [facility] - History History Provided By: Patient, Family Member () - Medical History Medical History: Medical History (Last Reviewed 04/10/18 @ 19:56 by Clint Headley MD) Hepatitis C - Surgical History Surgical History: Surgical History (Last Reviewed 04/10/18 @ 19:56 by Clint Headley MD) H/O heart artery stent - Tobacco History Second Hand Smoke Exposure: Yes Tobacco Use In Past 30 Days: Yes Smoking Status: Current every day smoker Tobacco Type: Cigarettes - Alcohol History How Often Do You Have a Drink Containing Alcohol: Never - Substance Use History Substance History: No History of Abuse - Travel History [facility] Travel in the [facility] Within the Last 8 Weeks: No Recent Travel Out of the Country Within the Last 8 Weeks: No - Immunization History Tetanus Immunization: <5 Years Medications and Allergies Allergies Allergy/AdvReac Type Severity Reaction Status Date / Time No Known Allergies Allergy Verified 04/10/18 18:50 Home Medications Medication Instructions Recorded Confirmed Type aspirin [Aspir-81] 81 mg PO DAILY 04/10/18 04/10/18 History calcium carbonate-vitamin D3 1 tab PO DAILY 04/10/18 04/10/18 History [Calcium 600 + D(3)] clopidogrel 75 mg PO DAILY 04/10/18 04/10/18 History hydrocodone-acetaminophen 1 tab PO Q6H 04/10/18 04/10/18 History lisinopril 5 mg PO DAILY 04/10/18 04/10/18 History metoprolol succinate 25 mg PO DAILY 04/10/18 04/10/18 History pantoprazole 40 mg PO DAILY 04/10/18 04/10/18 History pravastatin 80 mg PO DAILY 04/10/18 04/10/18 History sertraline 50 mg PO DAILY 04/10/18 04/10/18 History Active Medications: Active Medications Acetaminophen (Tylenol) 650 mg PO Q4H PRN PRN Reason: Temp > 100.4 Al Hydroxide/Mg Hydroxide (Milk Of Magnesia Liq) 30 ml PO Q12H PRN PRN Reason: Mild Constipation Bisacodyl (Dulcolax Supp) 10 mg RECTAL DAILY PRN PRN Reason: SEVERE CONSITIPATION Nitroglycerin/Dextrose (Nitroglycerin Drip Premix) 50 mg in 250 mls @ 0 mls/hr IV.CONT TITRATE PRN; Protocol PRN Reason: Per Protocol Last Admin: 04/10/18 20:02 Dose: 5 mcg/min, 1.5 mls/hr Heparin Sodium/Dextrose (Heparin/D5w 25,000 U/250 Ml) 25,000 unit in 250 mls @ 0 mls/hr IV.CONT TITRATE PRN; Protocol PRN Reason: Per Protocol Last Titration: 04/11/18 02:13 Dose: 1,100 units/hr, 11 mls/hr Sodium Chloride (Ns Inj) 1,000 mls @ 100 mls/hr IV.CONT .Q10H [facility] Last Infusion: 04/11/18 08:21 Dose: Infused Lactulose (Lactulose Liq) 30 ml PO DAILY PRN PRN Reason: SEVERE CONSITIPATION Morphine Sulfate (Morphine Inj) 2 mg IV.PUSH Q4H PRN PRN Reason: PAIN 6-10 Ondansetron HCl (Zofran Inj) 4 mg IV.PUSH Q6H PRN PRN Reason: NAUSEA OR VOMITING Pravastatin Sodium (Pravachol) 40 mg PO DAILY [facility] Last Admin: 04/11/18 08:23 Dose: 40 mg Senna/Docusate Sodium (Dejah-Colace) 1 tab PO BID [facility] Last Admin: 04/11/18 08:23 Dose: Not Given Sennosides (Senokot) 17.2 mg PO Q12H PRN PRN Reason: Moderate Constipation Exam Vital signs: Vital Signs 04/10/18 18:47 04/10/18 18:50 04/10/18 19:31 Temperature 97.3 F L 98.4 F Pulse Rate 59 L 51 L 58 L Respiratory Rate 21 20 18 Blood Pressure 178/113 H 121/74 182/108 H Pulse Oximetry 100 99 99 04/10/18 19:50 04/10/18 19:51 04/10/18 20:56 Temperature Pulse Rate 52 L 52 L Respiratory Rate 18 18 18 Blood Pressure 135/73 123/74 Pulse Oximetry 99 99 04/10/18 22:00 04/10/18 22:37 04/10/18 23:00 Temperature 97.2 F L Pulse Rate 52 L 53 L 60 Respiratory Rate 18 Blood Pressure 128/77 Pulse Oximetry 96 04/11/18 00:00 04/11/18 01:00 04/11/18 02:00 Temperature Pulse Rate 54 L 54 L 48 L Respiratory Rate Blood Pressure Pulse Oximetry 04/11/18 03:00 04/11/18 04:00 04/11/18 05:00 Temperature 97.5 F L Pulse Rate 50 L 52 L 48 L Respiratory Rate 18 Blood Pressure 105/63 Pulse Oximetry 95 04/11/18 06:00 04/11/18 07:00 Temperature Pulse Rate 53 L 56 L Respiratory Rate Blood Pressure Pulse Oximetry Intake & Output 04/10/18 04/11/18 04/11/18 18:59 06:59 18:59 Intake Total 240 / 240 1000 / 1000 Output Total 950 / 950 Balance -710 / -710 1000 / 1000 Weight 79.379 kg 78.9 kg Intake: IV 1000 / 1000 NS Inj 1,000 ML @ 100 mls/hr IV 1000 / 1000 .CONT .Q10H [facility] Rx#:[id number] Oral 240 / 240 Output: Urine 950 / 950 Other: Weight On Admission 79.379 kg Narrative: GENERAL: SKIN: Warm and dry. HEAD: Normocephalic. EYES: No scleral icterus. No injection or drainage. NECK: Supple, trachea midline. No JVD or lymphadenopathy. CARDIOVASCULAR: Regular rate and rhythm mild systolic murmur, gallops, or rubs. RESPIRATORY: Breath sounds equal bilaterally. No accessory muscle use. GASTROINTESTINAL: Abdomen soft, non-tender, nondistended. MUSCULOSKELETAL: No cyanosis, or edema. . Results 04/11/18 02:30 04/11/18 02:30 Cardiac Enzymes 04/10/18 04/11/18 Range/Units 19:30 02:30 AST 15 14 L (15-37) U/L Troponin I Less than 0.02 L 0.56 H (0.02-0.05) ng/mL Coagulation 04/10/18 04/11/18 04/11/18 Range/Units 19:30 01:14 07:59 PT 11.1 (9.8-11.6) sec APTT 28.9 39.2 H D 37.6 H (23.4-31.7) sec Lipids 04/11/18 Range/Units 02:30 Triglycerides 99 (42-150) mg/dL Cholesterol 113 L (120-200) mg/dL HDL Cholesterol 32.6 L (40.0-60.0) mg/dL Cholesterol/HDL Ratio 3.46 Ratio CBC 04/10/18 04/11/18 Range/Units 19:30 02:30 WBC 9.6 9.7 (4.0-11.0) th/mm3 RBC 4.78 4.50 (4.50-5.90) mil/mm3 Hgb 14.5 13.5 (13.0-17.0) gm/dL Hct 42.9 40.0 (39.0-51.0) % Plt Count 351 313 (150-450) th/mm3 Neut # (Auto) 5.2 5.2 (1.8-7.7) th/mm3 Lymph # (Auto) 3.0 3.0 (1.0-4.8) th/mm3 [place] # (Auto) 1.2 H 1.3 H (0.0-0.9) th/mm3 Eos # (Auto) 0.2 0.3 (0.0-0.4) th/mm3 Baso # (Auto) 0.1 0.1 (0.0-0.2) th/mm3 Comprehensive Metabolic Panel 04/10/18 04/11/18 Range/Units 19:30 02:30 Sodium 136 142 (136-145) meq/L Potassium 3.7 3.8 (3.5-5.1) meq/L Chloride 102 109 H (98-107) meq/L Carbon Dioxide 24.4 28.6 (21.0-32.0) meq/L BUN 9 8 (7-18) mg/dL Creatinine 0.81 0.66 (0.60-1.30) mg/dL Calcium 8.7 8.3 L (8.5-10.1) mg/dL AST 15 14 L (15-37) U/L ALT 19 16 (12-78) U/L Alkaline Phosphatase 119 H 104 (45-117) U/L Total Protein 9.0 H 7.9 D (6.4-8.2) g/dL Albumin 3.3 L 2.9 L (3.4-5.0) g/dL Intake and Output 04/10/18 04/11/18 04/11/18 22:59 06:59 14:59 Intake Total 240 / 240 1000 / 1000 Output Total 950 / 950 Balance -710 / -710 1000 / 1000 Intake: IV 1000 / 1000 NS Inj 1,000 ML @ 100 mls/hr IV 1000 / 1000 .CONT .Q10H [facility] Rx#:[id number] Oral 240 / 240 Output: Urine 950 / 950 Other: Weight 78.925 kg 78.9 kg Weight On Admission 79.379 kg - Imaging and Cardiology Imaging: Impressions Chest X-Ray 04/10/18 18:51 CONCLUSION: Mild diffuse bilateral interstitial opacities age indeterminate but most likely chronic. Hyperexpanded lungs. Assessment and Plan - Assessment (1) ACS (acute coronary syndrome) Code(s): I24.9 - Acute ischemic heart disease, unspecified Status: Acute - Plan 67 yo M with CAD and multiple prior stents "about a dozen" performed by his club room attendant in [place] (last PCI ~2006), HTN, hx of hepatitis C and current tobacco smoker presented with acute substernal chest pain "910" yesterday. He is visiting from [place], arrived 4 weeks ago and admits to having occasional exertional chest pain that has progressively worsened. Yesterday chest pain became "10/10" with radiation to jaw and numbness to bilateral arms, that improved somewhat after laying down. When he got up and started about his day symptoms returned. He then came to the ED where EKG was initially read with ST elevations, however this was incorrect and he did not meet criteria for STEMI. Subsequent EKGs have shown T wave inversion to precordial leads. symptoms improved with nitro. Troponin level <0.02 --> 0.56 --> 3rd lab pending. He is currently resting comfortably with "1/10" pain. He does state these symptoms are reminiscent of prior ME. NSTEMI- EKG demonstrates deep T wave inversion to precordial leads with suggestive symptoms will need ischemic workup with cardiac catheterization change pravastatin to high intensity statin, atorvastatin 80mg beta [place] contraindicated due to resting bradycardia - Attending Attestation NSTEMI currently CP free continue asa, nitro gtt, heparin gtt, BB, statin EKG T wave inversions trop mildly elevated hemodynamically stable On schedule for LHC friday. if recurrent symptoms, will proceed with C sooner
--- NOTE | 2018-04-11 11:52 | ECHRPT ---
Indication: Chest pain, unspecified CONCLUSIONS Wall thickness is normal. Normal left ventricular size. Left ventricular systolic function is modera tely reduced with an estimated ejection fraction in the range of 35-40%. Akinesis of a small portion of the apex and possibly akinesis of the basal inferior wall. There is mild tricuspid valve regurgitation. The estimated pulmonary arterial pressure is 35 mmHg. Trace mitral valve regurgitation. BP: / HR: Rhythm: Sinus MEASUREMENTS (Male / Female) Normal Values Technical Quality:Good 2D ECHO LV Diastolic Diameter PLAX 5.1 cm 4.2 - 5.9 / 3.9 - 5.3 cm LV Systolic Diameter PLAX 4.2 cm IVS Diastolic Thickness 1.0 cm 0.6 - 1.0 / 0.6 - 0.9 cm LVPW Diastolic Thickness 1.0 cm 0.6 - 1.0 / 0.6 - 0.9 cm LV Relative Wall Thickness 0.4 LVOT Diameter 2.2 cm LA Systolic Diameter LX 4.7 cm 3.0 - 4.0 / 2.7 - 3.8 cm M-MODE Aortic Root Diameter MM 3.6 cm AV Cusp Separation MM 2.2 cm DOPPLER AV Peak Velocity 115.0 cm/s AV Peak Gradient 5.3 mmHg LVOT Peak Velocity 86.4 cm/s LVOT Peak Gradient 3.0 mmHg AV Area Cont Eq pk 2.9 cm MR Peak Velocity 298.5 cm/s MR Peak Gradient 35.6 mmHg Mitral E Point Velocity 57.3 cm/s Mitral A Point Velocity 72.6 cm/s Mitral E to A Ratio 0.8 LV E' Lateral Velocity 5.0 cm/s Mitral E to LV E' Lateral Ratio 11.5 LV E' Septal Velocity 2.9 cm/s Mitral E to LV E' Septal Ratio 19.6 TR Peak Velocity 251.0 cm/s TR Peak Gradient 25.2 mmHg Right Atrial Pressure 10.0 mmHg Pulmonary Artery Systolic Pressu 35.2 mmHg Right Ventricular Systolic Press 35.2 mmHg PV Peak Velocity 102.0 cm/s PV Peak Gradient 4.2 mmHg FINDINGS LEFT VENTRICLE Wall thickness is normal. Normal left ventricular size. The left ventricular systolic function is mo derately reduced with an estimated ejection fraction in the range of 35-40%. Akinesis of a small portion of the apex and possibly akinesis of the basal inferior wall. RIGHT VENTRICLE Normal right ventricular size and systolic function. LEFT ATRIUM The left atrial size is normal. RIGHT ATRIUM The right atrial size is normal. ATRIAL SEPTUM Normal atrial septal thickness without atrial level shunting by limited color doppler interrogation. AORTA The aortic root and proximal ascending aorta are normal in size on limited imaging. MITRAL VALVE Trace mitral valve regurgitation. AORTIC VALVE Trileaflet aortic valve. No aortic valve stenosis or regurgitation. TRICUSPID VALVE There is mild tricuspid valve regurgitation. The estimated pulmonary arterial pressure is 35 mmHg. PULMONARY VALVE No pulmonary valve regurgitation or stenosis. VESSELS The inferior vena cava is normal in size. PERICARDIUM No pericardial effusion. Umair Bass MD (Electronically Signed) Final Date:11 April 2018 11:51
--- NOTE | 2018-04-11 14:13 | P.PN ---
Subjective Interval history: Nursing denies any acute changes overnight. Patient himself denies any chest pain shortness of breath. No lower extremity edema. Physical Exam Vital signs: Vital Signs 04/10/18 18:47 04/10/18 18:50 04/10/18 19:31 Temperature 97.3 F L 98.4 F Pulse Rate 59 L 51 L 58 L Respiratory Rate 21 20 18 Blood Pressure 178/113 H 121/74 182/108 H Pulse Oximetry 100 99 99 04/10/18 19:50 04/10/18 19:51 04/10/18 20:56 Temperature Pulse Rate 52 L 52 L Respiratory Rate 18 18 18 Blood Pressure 135/73 123/74 Pulse Oximetry 99 99 04/10/18 22:00 04/10/18 22:37 04/10/18 23:00 Temperature 97.2 F L Pulse Rate 52 L 53 L 60 Respiratory Rate 18 Blood Pressure 128/77 Pulse Oximetry 96 04/11/18 00:00 04/11/18 01:00 04/11/18 02:00 Temperature Pulse Rate 54 L 54 L 48 L Respiratory Rate Blood Pressure Pulse Oximetry 04/11/18 03:00 04/11/18 04:00 04/11/18 05:00 Temperature 97.5 F L Pulse Rate 50 L 52 L 48 L Respiratory Rate 18 Blood Pressure 105/63 Pulse Oximetry 95 04/11/18 06:00 04/11/18 07:00 04/11/18 08:00 Temperature 98.3 F Pulse Rate 53 L 56 L 60 Respiratory Rate 18 Blood Pressure 103/59 L Pulse Oximetry 95 04/11/18 09:00 04/11/18 10:00 04/11/18 11:00 Temperature Pulse Rate 56 L 54 L 65 Respiratory Rate Blood Pressure Pulse Oximetry Intake & Output 04/10/18 04/11/18 04/11/18 18:59 06:59 18:59 Intake Total 240 / 240 1000 / 1000 Output Total 950 / 950 Balance -710 / -710 1000 / 1000 Weight 79.379 kg 78.9 kg Intake: IV 1000 / 1000 NS Inj 1,000 ML @ 100 mls/hr IV 1000 / 1000 .CONT .Q10H [facility] Rx#:[id number] Oral 240 / 240 Output: Urine 950 / 950 Other: Date of Last Bowel Movement 03/10/18 Weight On Admission 79.379 kg Narrative: Sleeping, easily woken No acute distress Lower extremity edema Heart sounds regular rate and rhythm, no murmurs Clear lungs bilaterally, unlabored breathing Results - Labs CBC & Chem 7: 04/11/18 02:30 04/11/18 02:30 Laboratory Results - last 24 hr 04/10/18 04/10/18 04/10/18 19:30 19:30 19:30 WBC 9.6 RBC 4.78 Hgb 14.5 POC Hgb (Calc) 15.0 Hct 42.9 POC Hct 44.0 MCV 89.8 MCH 30.3 MCHC 33.8 RDW 15.4 Plt Count 351 MPV 8.7 Neut % (Auto) 53.9 Lymph % (Auto) 30.9 Gregory % (Auto) 12.1 H Eos % (Auto) 2.3 Baso % (Auto) 0.8 Neut # (Auto) 5.2 Lymph # (Auto) 3.0 Gregory # (Auto) 1.2 H Eos # (Auto) 0.2 Baso # (Auto) 0.1 WBC Differential . Differential Comment Auto diff final PT 11.1 INR 1.1 APTT 28.9 POC Sodium 138 Sodium 136 POC Potassium 3.8 Potassium 3.7 POC Chloride 100 L Chloride 102 Carbon Dioxide 24.4 Anion Gap 10 POC BUN 8 BUN 9 Creatinine 0.81 POC Creatinine 0.7 Estimated GFR Greater than 89 POC Glucose 116 H Random Glucose 108 H Calcium 8.7 Total Bilirubin 0.4 AST 15 ALT 19 Alkaline Phosphatase 119 H Troponin I Less than 0.02 L Total Protein 9.0 H Albumin 3.3 L Triglycerides Cholesterol LDL Cholesterol, Calc HDL Cholesterol Cholesterol/HDL Ratio 04/11/18 04/11/18 04/11/18 01:14 02:30 02:30 WBC 9.7 RBC 4.50 Hgb 13.5 POC Hgb (Calc) Hct 40.0 POC Hct MCV 89.0 MCH 30.1 MCHC 33.8 RDW 15.4 Plt Count 313 MPV 8.7 Neut % (Auto) 53.2 Lymph % (Auto) 30.6 Gregory % (Auto) 12.9 H Eos % (Auto) 2.7 Baso % (Auto) 0.6 Neut # (Auto) 5.2 Lymph # (Auto) 3.0 Gregory # (Auto) 1.3 H Eos # (Auto) 0.3 Baso # (Auto) 0.1 WBC Differential . Differential Comment Auto diff final PT INR APTT 39.2 H D POC Sodium Sodium 142 POC Potassium Potassium 3.8 POC Chloride Chloride 109 H Carbon Dioxide 28.6 Anion Gap 4 L POC BUN BUN 8 Creatinine 0.66 POC Creatinine Estimated GFR Greater than 89 POC Glucose Random Glucose 94 Calcium 8.3 L Total Bilirubin 0.4 AST 14 L ALT 16 Alkaline Phosphatase 104 Troponin I 0.56 H Total Protein 7.9 D Albumin 2.9 L Triglycerides 99 Cholesterol 113 L LDL Cholesterol, Calc 61 HDL Cholesterol 32.6 L Cholesterol/HDL Ratio 3.46 04/11/18 04/11/18 07:59 07:59 WBC RBC Hgb POC Hgb (Calc) Hct POC Hct MCV MCH MCHC RDW Plt Count MPV Neut % (Auto) Lymph % (Auto) Gregory % (Auto) Eos % (Auto) Baso % (Auto) Neut # (Auto) Lymph # (Auto) Gregory # (Auto) Eos # (Auto) Baso # (Auto) WBC Differential Differential Comment PT INR APTT 37.6 H POC Sodium Sodium POC Potassium Potassium POC Chloride Chloride Carbon Dioxide Anion Gap POC BUN BUN Creatinine POC Creatinine Estimated GFR POC Glucose Random Glucose Calcium Total Bilirubin AST ALT Alkaline Phosphatase Troponin I 0.39 H Total Protein Albumin Triglycerides Cholesterol LDL Cholesterol, Calc HDL Cholesterol Cholesterol/HDL Ratio - Imaging Impressions Chest X-Ray 04/10/18 18:51 CONCLUSION: Mild diffuse bilateral interstitial opacities age indeterminate but most likely chronic. Hyperexpanded lungs. Assessment and Plan - Assessment (1) ACS (acute coronary syndrome) Code(s): I24.9 - Acute ischemic heart disease, unspecified Status: Acute (2) Chest pain Code(s): R07.9 - Chest pain, unspecified Status: Acute (3) HTN (hypertension) Code(s): I10 - Essential (primary) hypertension Status: Acute (4) Tobacco abuse Code(s): Z72.0 - Tobacco use Status: Acute - Plan 67-year-old white male admitted for Acute myocardial infarction. NSTEMI -Troponins have plateaued-at 0.5 and downwards, Cardiology following, planning for heart cath in 2 days Continue aspirin, beta-[place], heparin drip, statin -Echocardiogram showing systolic dysfunction with a EF of 35%, likely not acute at this time, will start lisinopril Continue home sertraline Progress Note: Quality - AMI Clinical Trial Participant: No
[2018-04-11] MEDS: Sertraline 50 MG Tablet PO SCH (15:09)
[2018-04-11] MEDS: Lisinopril 5 MG Tablet PO SCH (15:09)
[2018-04-11] MEDS: Calcium/Vitamin D 250/125 MG Tablet PO SCH (15:09)
[2018-04-11] MEDS: Heparin Drip 25,000 UNIT/250 ML BAG IV.CONT PRN (17:12)
[2018-04-12] MEDS: Sod Chloride 0.9% Inj 1,000 ML IV.CONT SCH ×3 (06:29→23:36)
[2018-04-12] MEDS: Sertraline 50 MG Tablet PO SCH (08:55)
[2018-04-12] MEDS: Calcium/Vitamin D 250/125 MG Tablet PO SCH (08:55)
[2018-04-12] MEDS: Senna/Docusate Sodium 8.6/50 MG Tablet PO SCH ×2 (08:55→20:10)
--- NOTE | 2018-04-12 09:45 | P.PNCA ---
Subjective Interval history: feeling well. no chest pain or sob. lisinopril 5mg added yesterday. mild hypotension but asymptomatic Medications and Allergies Allergies Allergy/AdvReac Type Severity Reaction Status Date / Time No Known Allergies Allergy Verified 04/10/18 18:50 Home Medications Medication Instructions Recorded Confirmed Type aspirin [Aspir-81] 81 mg PO DAILY 04/10/18 04/10/18 History calcium carbonate-vitamin D3 1 tab PO DAILY 04/10/18 04/10/18 History [Calcium 600 + D(3)] clopidogrel 75 mg PO DAILY 04/10/18 04/10/18 History hydrocodone-acetaminophen 1 tab PO Q6H 04/10/18 04/10/18 History lisinopril 5 mg PO DAILY 04/10/18 04/10/18 History metoprolol succinate 25 mg PO DAILY 04/10/18 04/10/18 History pantoprazole 40 mg PO DAILY 04/10/18 04/10/18 History pravastatin 80 mg PO DAILY 04/10/18 04/10/18 History sertraline 50 mg PO DAILY 04/10/18 04/10/18 History Active Medications: Active Medications Acetaminophen (Tylenol) 650 mg PO Q4H PRN PRN Reason: Temp > 100.4 Al Hydroxide/Mg Hydroxide (Milk Of Robert Liq) 30 ml PO Q12H PRN PRN Reason: Mild Constipation Aspirin (Aspirin Chew) 81 mg PO DAILY [facility] Last Admin: 04/12/18 08:55 Dose: 81 mg Atorvastatin Calcium (Lipitor) 40 mg PO HS [facility] Last Admin: 04/11/18 20:06 Dose: 40 mg Bisacodyl (Dulcolax Supp) 10 mg RECTAL DAILY PRN PRN Reason: SEVERE CONSITIPATION Calcium/Vitamin D (Oscal With D 250/125 Mg) 2 tab PO DAILY [facility] Last Admin: 04/12/18 08:55 Dose: 2 tab Nitroglycerin/Dextrose (Nitroglycerin Drip Premix) 50 mg in 250 mls @ 0 mls/hr IV.CONT TITRATE PRN; Protocol PRN Reason: Per Protocol Last Titration: 04/12/18 09:14 Dose: 0 mcg/min, 0 mls/hr Heparin Sodium/Dextrose (Heparin/D5w 25,000 U/250 Ml) 25,000 unit in 250 mls @ 0 mls/hr IV.CONT TITRATE PRN; Protocol PRN Reason: Per Protocol Last Titration: 04/12/18 00:00 Dose: 1,200 units/hr, 12 mls/hr Sodium Chloride (Ns Inj) 1,000 mls @ 100 mls/hr IV.CONT .Q10H [facility] Last Admin: 04/12/18 06:29 Dose: Not Given Lactulose (Lactulose Liq) 30 ml PO DAILY PRN PRN Reason: SEVERE CONSITIPATION Lisinopril (Prinivil) 5 mg PO DAILY [facility] Last Admin: 04/11/18 15:09 Dose: 5 mg Metoprolol Succinate (Toprol Xl) 25 mg PO DAILY [facility] Morphine Sulfate (Morphine Inj) 2 mg IV.PUSH Q4H PRN PRN Reason: PAIN 6-10 Ondansetron HCl (Zofran Inj) 4 mg IV.PUSH Q6H PRN PRN Reason: NAUSEA OR VOMITING Senna/Docusate Sodium (Dejah-Colace) 1 tab PO BID [facility] Last Admin: 04/12/18 08:55 Dose: 1 tab Sennosides (Senokot) 17.2 mg PO Q12H PRN PRN Reason: Moderate Constipation Sertraline HCl (Zoloft) 50 mg PO DAILY [facility] Last Admin: 04/12/18 08:55 Dose: 50 mg Physical Exam Vital signs: Vital Signs 04/11/18 10:00 04/11/18 11:00 04/11/18 12:00 Temperature 98.3 F Pulse Rate 54 L 65 50 L Respiratory Rate 18 Blood Pressure 127/83 Pulse Oximetry 96 04/11/18 13:00 04/11/18 14:00 04/11/18 15:00 Temperature Pulse Rate 58 L 52 L 57 L Respiratory Rate Blood Pressure Pulse Oximetry 04/11/18 16:00 04/11/18 17:00 04/11/18 17:11 Temperature 98.1 F Pulse Rate 60 52 L Respiratory Rate 18 Blood Pressure 133/81 Pulse Oximetry 96 96 04/11/18 18:00 04/11/18 19:00 04/11/18 20:00 Temperature 98.3 F Pulse Rate 64 61 66 Respiratory Rate 18 Blood Pressure 122/62 Pulse Oximetry 97 04/11/18 21:00 04/11/18 22:00 04/11/18 23:00 Temperature Pulse Rate 60 60 61 Respiratory Rate Blood Pressure Pulse Oximetry 04/12/18 00:00 04/12/18 01:00 04/12/18 02:00 Temperature 98.2 F Pulse Rate 62 61 60 Respiratory Rate 18 Blood Pressure 112/67 Pulse Oximetry 96 04/12/18 03:00 04/12/18 04:00 04/12/18 05:00 Temperature 98 F Pulse Rate 61 63 60 Respiratory Rate 18 Blood Pressure 93/53 L Pulse Oximetry 96 04/12/18 05:59 04/12/18 07:00 04/12/18 08:00 Temperature Pulse Rate 62 52 L 66 Respiratory Rate Blood Pressure Pulse Oximetry 04/12/18 08:45 04/12/18 09:00 Temperature 97.9 F Pulse Rate 56 L 58 L Respiratory Rate 18 Blood Pressure 98/65 L Pulse Oximetry 97 Intake & Output 04/11/18 04/12/18 04/12/18 18:59 06:59 18:59 Intake Total 2410 / 2410 840 / 840 Output Total 1200 / 1200 1000 / 1000 Balance 1210 / 1210 -160 / -160 Weight 78.5 kg Intake: IV 1250 / 1250 Heparin/D5W 25,000 U/250 mL 25, 250 / 250 000 unit In 250 ml @ Per Protocol IV.CONT TITRATE PRN Rx #:[id number] Nitroglycerin Drip Premix 50 mg In 250 ml @ Per Protocol IV. CONT TITRATE PRN Rx#:[id number] NS Inj 1,000 ML @ 100 mls/hr IV 1000 / 1000 .CONT .Q10H [facility] Rx#:[id number] Oral 1160 / 1160 840 / 840 Output: Urine 1200 / 1200 1000 / 1000 Other: # Voids 5 Date of Last Bowel Movement 03/10/18 # Bowel Movements 0 Narrative: GENERAL: SKIN: Warm and dry. HEAD: Normocephalic. EYES: No scleral icterus. No injection or drainage. NECK: Supple, trachea midline. No JVD or lymphadenopathy. CARDIOVASCULAR: Regular rate and rhythm without murmurs, gallops, or rubs. RESPIRATORY: Breath sounds equal bilaterally. No accessory muscle use. GASTROINTESTINAL: Abdomen soft, non-tender, nondistended. MUSCULOSKELETAL: No cyanosis, or edema. . Results 04/12/18 08:55 04/11/18 02:30 Cardiac Enzymes 04/10/18 04/11/18 04/11/18 Range/Units 19:30 02:30 07:59 AST 15 14 L (15-37) U/L Troponin I Less than 0.02 L 0.56 H 0.39 H (0.02-0.05) ng/mL Coagulation 04/10/18 04/11/18 04/11/18 Range/Units 19:30 01:14 07:59 PT 11.1 (9.8-11.6) sec APTT 28.9 39.2 H D 37.6 H (23.4-31.7) sec 04/11/18 Range/Units 23:12 PT (9.8-11.6) sec APTT 44.9 H (23.4-31.7) sec Lipids 04/11/18 Range/Units 02:30 Triglycerides 99 (42-150) mg/dL Cholesterol 113 L (120-200) mg/dL HDL Cholesterol 32.6 L (40.0-60.0) mg/dL Cholesterol/HDL Ratio 3.46 Ratio CBC 04/10/18 04/11/18 Range/Units 19:30 02:30 WBC 9.6 9.7 (4.0-11.0) th/mm3 RBC 4.78 4.50 (4.50-5.90) mil/mm3 Hgb 14.5 13.5 (13.0-17.0) gm/dL Hct 42.9 40.0 (39.0-51.0) % Plt Count 351 313 (150-450) th/mm3 Neut # (Auto) 5.2 5.2 (1.8-7.7) th/mm3 Lymph # (Auto) 3.0 3.0 (1.0-4.8) th/mm3 [place] # (Auto) 1.2 H 1.3 H (0.0-0.9) th/mm3 Eos # (Auto) 0.2 0.3 (0.0-0.4) th/mm3 Baso # (Auto) 0.1 0.1 (0.0-0.2) th/mm3 Comprehensive Metabolic Panel 04/10/18 04/11/18 Range/Units 19:30 02:30 Sodium 136 142 (136-145) meq/L Potassium 3.7 3.8 (3.5-5.1) meq/L Chloride 102 109 H (98-107) meq/L Carbon Dioxide 24.4 28.6 (21.0-32.0) meq/L BUN 9 8 (7-18) mg/dL Creatinine 0.81 0.66 (0.60-1.30) mg/dL Calcium 8.7 8.3 L (8.5-10.1) mg/dL AST 15 14 L (15-37) U/L ALT 19 16 (12-78) U/L Alkaline Phosphatase 119 H 104 (45-117) U/L Total Protein 9.0 H 7.9 D (6.4-8.2) g/dL Albumin 3.3 L 2.9 L (3.4-5.0) g/dL Intake and Output 04/11/18 04/12/18 04/12/18 22:59 06:59 14:59 Intake Total 1410 / 1410 840 / 840 Output Total 1200 / 1200 1000 / 1000 Balance 210 / 210 -160 / -160 Intake: IV 250 / 250 Heparin/D5W 25,000 U/250 mL 25, 250 / 250 000 unit In 250 ml @ Per Protocol IV.CONT TITRATE PRN Rx #:[id number] Nitroglycerin Drip Premix 50 mg In 250 ml @ Per Protocol IV. CONT TITRATE PRN Rx#:[id number] Oral 1160 / 1160 840 / 840 Output: Urine 1200 / 1200 1000 / 1000 Other: # Voids 5 Date of Last Bowel Movement 03/10/18 # Bowel Movements 0 Weight 78.5 kg - Imaging and Cardiology Imaging: Impressions Chest X-Ray 04/10/18 18:51 CONCLUSION: Mild diffuse bilateral interstitial opacities age indeterminate but most likely chronic. Hyperexpanded lungs. 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 He is visiting from [place] , arrived 4 weeks ago and admits to having occasional exertional chest pain that has progressively worsened. chest pain became "10/10" with radiation to jaw and numbness to bilateral arms, that improved somewhat after laying down. When he got up and started about his day symptoms returned. He then came to the ED where EKG was initially read with ST elevations, however this was incorrect and he did not meet criteria for STEMI. Subsequent EKGs have shown T wave inversion to precordial leads. symptoms improved with nitro. 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
[2018-04-12 09:53] LABS: Hematocrit 42.3 % (39.0-51.0); Hemoglobin 13.8 gm/dL (13.0-17.0); Mean Corpuscular HGB Conc 32.7 % (32.0-36.0); Mean Corpuscular Hemoglobin 30.1 pg (27.0-34.0); Mean Corpuscular Volume 92.2 fL (80.0-100.0); Mean Platelet Volume 9.4 fL (7.0-11.0); Platelet Count 296 th/mm3 (150-450); Red Blood Count 4.59 mil/mm3 (4.50-5.90); Red Cell Distribution Width 15.4 % (11.6-17.2); White Blood Count 8.2 th/mm3 (4.0-11.0)
[2018-04-12] MEDS: Lisinopril 5 MG Tablet PO SCH (10:35)
--- NOTE | 2018-04-12 12:13 | P.PN ---
Subjective Interval history: Nursing denies any acute issues overnight. Patient himself denies any chest pain, denies shortness of breath. Physical Exam Vital signs: Vital Signs 04/11/18 13:00 04/11/18 14:00 04/11/18 15:00 Temperature Pulse Rate 58 L 52 L 57 L Respiratory Rate Blood Pressure Pulse Oximetry 04/11/18 16:00 04/11/18 17:00 04/11/18 17:11 Temperature 98.1 F Pulse Rate 60 52 L Respiratory Rate 18 Blood Pressure 133/81 Pulse Oximetry 96 96 04/11/18 18:00 04/11/18 19:00 04/11/18 20:00 Temperature 98.3 F Pulse Rate 64 61 66 Respiratory Rate 18 Blood Pressure 122/62 Pulse Oximetry 97 04/11/18 21:00 04/11/18 22:00 04/11/18 23:00 Temperature Pulse Rate 60 60 61 Respiratory Rate Blood Pressure Pulse Oximetry 04/12/18 00:00 04/12/18 01:00 04/12/18 02:00 Temperature 98.2 F Pulse Rate 62 61 60 Respiratory Rate 18 Blood Pressure 112/67 Pulse Oximetry 96 04/12/18 03:00 04/12/18 04:00 04/12/18 05:00 Temperature 98 F Pulse Rate 61 63 60 Respiratory Rate 18 Blood Pressure 93/53 L Pulse Oximetry 96 04/12/18 05:59 04/12/18 07:00 04/12/18 08:00 Temperature Pulse Rate 62 52 L 66 Respiratory Rate Blood Pressure Pulse Oximetry 04/12/18 08:45 04/12/18 09:00 04/12/18 10:00 Temperature 97.9 F Pulse Rate 56 L 58 L 54 L Respiratory Rate 18 Blood Pressure 98/65 L Pulse Oximetry 97 04/12/18 11:14 Temperature 97.9 F Pulse Rate 57 L Respiratory Rate 18 Blood Pressure 125/82 Pulse Oximetry 98 Intake & Output 04/11/18 04/12/18 04/12/18 18:59 06:59 18:59 Intake Total 2410 / 2410 840 / 840 1010 / 1010 Output Total 1200 / 1200 1000 / 1000 Balance 1210 / 1210 -160 / -160 1010 / 1010 Weight 78.5 kg Intake: IV 1250 / 1250 1010 / 1010 Heparin/D5W 25,000 U/250 mL 25, 250 / 250 000 unit In 250 ml @ Per Protocol IV.CONT TITRATE PRN Rx #:[id number] Nitroglycerin Drip Premix 50 mg 10 / 10 In 250 ml @ Per Protocol IV. CONT TITRATE PRN Rx#:[id number] NS Inj 1,000 ML @ 100 mls/hr IV 1000 / 1000 1000 / 1000 .CONT .Q10H [facility] Rx#:[id number] Oral 1160 / 1160 840 / 840 Output: Urine 1200 / 1200 1000 / 1000 Other: # Voids 5 Date of Last Bowel Movement 03/10/18 # Bowel Movements 0 Narrative: 3/6 ejection murmur Heart sounds otherwise regular rate and rhythm Clear lungs bilaterally, unlabored No lower extremity edema Results - Labs CBC & Chem 7: 04/12/18 08:55 04/11/18 02:30 Laboratory Results - last 24 hr 04/11/18 04/12/18 04/12/18 23:12 08:55 08:55 WBC 8.2 RBC 4.59 Hgb 13.8 Hct 42.3 MCV 92.2 MCH 30.1 MCHC 32.7 RDW 15.4 Plt Count 296 MPV 9.4 APTT 44.9 H 26.6 D Assessment and Plan - Assessment (1) ACS (acute coronary syndrome) Code(s): I24.9 - Acute ischemic heart disease, unspecified Status: Acute (2) Chest pain Code(s): R07.9 - Chest pain, unspecified Status: Acute (3) HTN (hypertension) Code(s): I10 - Essential (primary) hypertension Status: Acute (4) Tobacco abuse Code(s): Z72.0 - Tobacco use Status: Acute - Plan 67-year-old white male admitted for Acute myocardial infarction. NSTEMI -Troponins have plateaued-at 0.5 and downwards, Cardiology following, planning for heart cath in 1 day Continue aspirin, beta-[place], heparin drip, statin -Echocardiogram showing systolic dysfunction with a EF of 35%, likely not acute at this time, lisinopril held due to borderline blood pressures Continue home sertraline Progress Note: Quality - AMI Clinical Trial Participant: No
[2018-04-12] MEDS: Heparin Drip 25,000 UNIT/250 ML BAG IV.CONT PRN (15:17)
[2018-04-13 03:37] VITALS: TEMP 98; O2SAT 98
[2018-04-13] MEDS ORDERED: Metoprolol Tartrate 25 MG Tablet PO SCH (05:00)
[2018-04-13] MEDS ORDERED: Heparin/NS PF Inj 1,000 ML ONE (07:19)
[2018-04-13] MEDS ORDERED: fentaNYL Citrate Inj 100 MCG/2 ML Ampul ONE (07:20)
[2018-04-13] MEDS ORDERED: Heparin 10,000 UNITS/10 ML Vial (for IV use) ONE (07:35)
[2018-04-13 07:40] LABS: Hematocrit 40.6 % (39.0-51.0); Hemoglobin 13.8 gm/dL (13.0-17.0); Mean Corpuscular Hemoglobin 30.7 pg (27.0-34.0); Mean Corpuscular Volume 90.4 fL (80.0-100.0); Mean Platelet Volume 8.9 fL (7.0-11.0); Platelet Count 295 th/mm3 (150-450); Red Blood Count 4.49 mil/mm3 (4.50-5.90); Red Cell Distribution Width 15.2 % (11.6-17.2); White Blood Count 9.3 th/mm3 (4.0-11.0)
--- NOTE | 2018-04-13 07:58 | P.PCN ---
Date of procedure: 04/13/18 Pre-op diagnosis: Non-ST elevation myocardial infarction Procedure: tube laser operator: Emerson Head MD Procedures performed: 1. Fluoroscopy with interpretation 2. Coronary angiography Methods: Risks, benefits, and alternatives were discussed with the patient. Patient understood and consented to the procedure. Patient was brought into the cardiac catheterization lab and placed on the catheterization table. The patient's right wrist was prepped and draped in a sterile fashion. The right wrist was anesthetized with 1% lidocaine. Right wrist was cannulated and a 6 Maldivian 11 cm sheath was placed without difficulty. 200 mcg of intra-arterial nitroglycerin was administered and 5000 units of intravenous heparin. Coronary angiography: The left main coronary artery was selectively engaged with a 5 [place] JL 3.5 Sandoval catheter. The right coronary circulation was selectively engaged with a 5 [place] JR 5 Sandoval catheter. 1. Left main coronary artery has minor luminal irregularities 2. Left anterior descending coronary has stents present in the proximal segment which has minor luminal irregularities. This mid segment of the left anterior descending coronary artery has some tortuosity but 80% stenosis present. The diagonal branch is small to moderate caliber size with a 90% ostial stenosis present. The distal left anterior descending coronary artery has a 90% tubular stenosis. The apical left anterior descending coronary artery is patent. 3. The left circumflex has stents present in the obtuse marginal branch. There is 30 to maybe 40% stenosis in the proximal circumflex coronary artery. The obtuse marginal branch is widely patent. 4. The right coronary has stents present through the entire proximal to mid and distal segment. The ostium of the right coronary artery has severe in- stent restenosis of 95%. The proximal to mid segment has 80% tubular in-stent restenosis. The remainder the posterior descending coronary artery and distal right coronary has mild luminal irregularities Conclusions: 1. Severe multivessel coronary artery disease with history of severe in-stent restenosis Plan: Given the diffuse nature of disease and history of severe in-stent restenosis, this patient may be served best with consideration for surgical revascularization. Will discuss with cardiothoracic surgery. We will likely manage the distal left anterior descending coronary artery conservatively for now. If there is recurrent symptoms, we could consider hybrid procedure down the line, and less a jump graft can be performed. Continue heparin drip. We will check a P2 Y 12 assay
--- NOTE | 2018-04-13 08:03 | CATHPROC ---
[facility] HIS Report Study Information Study Number Admission Scheduled Start Study Start [id number] Apr 10 2018 8:34PM 04/13/2018 Apr 13 2018 7:09AM [place] [facility]iac Catheterization Admit Source Facility Department Other [facility] Physician and Clinical Staff Initial Dante Mahoney Radio Personality Omer Bentley,RN Recorder Jennifer Membreno,PONCHO Scrub Hosterman, Tank,RT(R) Procedures Performed Procedure Location (Site) Vessel Name Coronary Angiograms LCA Left Coronary Coronary Angiograms RCA Right Coronary L Heart Cath Equipment Time Pottery Decoration Designer Description Size Mfg Part Number Used/Scraped TRANSDUCER, TRUWAVE [id number] 07:16 ALDANA TELLO * Used W/STOCKCOCK *[id number] [id number] *[id number] [id number] *[id number] 07:16 [employer] BLANKET,WARM AIR CCL * Used *[id number] 07:16 [employer] PACK, CCL CUSTOM * Used *[id number] 07:16 [employer] SUPPORT, ARTERIAL ADULT 11912 *[id number] Used BAND, RADIAL COMPRESSION TR [id number] 07:49 [employer] 24CM Used SHORT 24 *[id number] SHEATH, FR6 RADIAL PRELUDE 07:16 [employer] FR 6 [id number] Used EASE 11CM [id number] 07:16 [employer] WIRE, EXCHANGE 260CM 3MMJ 260CM Used *[id number] 07:16 NAMIC MANIFOLD, 4 PORT * Used *[id number] 07:16 [employer] OMNIPAQUE, 350 MG, 150ML 150ML [id number] Used History: Allergies Allergy Reaction No Known Allergies History: Risk Factors Family History of Hypertension Dyslipidemia Previous MS Previous Heart Failure Premature CAD Yes Yes No Yes No Prior Valve Prior PCI Prior PCIDate Prior CABG Surgery No Yes 06/02/2006 No Cerebrovascular Peripheral Artery Chronic Lung On Dialysis Diabetes Disease Disease Disease No No No No No History: Stress Tests Stress or Imaging Studies Performed No History: Other Current Smoker Method Packs a Day Years Used Pack Years Yes Cigarettes 1 50 50 Labs Hgb (g/dl) Hct (%) WBC (l/cumm) Platelets (thousands) 11.60-17.00 35.00-51.00 4.00-11.00 150.00-450.00 13.8 42.3 8.2 296 Glucose (mg/dl) BUN (mg/dl) Creatinine (mg/dl) BUN:Creatinine (1:x) 74.00-106.00 7.00-18.00 0.50-1.30 10.00-20.00 94 8 0.6 13.3 Na (meq/l) K (meq/l) 136.00-145.00 3.50-5.10 142 3.8 INR (PTT:PT) 0.90-1.10 1.1 Troponin I (ng/ml) CPK-MB (ng/ML) 0.02-0.05 0.50-3.60 0.56 Not Drawn Medication Medication Total Dose (Bolus/Oral) Medication Total Dosage/Unit 1% XYLOCAINE 20 mL FENTANYL 50 mcg HEPARIN 3000 units NTG (IC) 200 mcg VERSED 2 mg Medications (Bolus/Oral) Medication Time Given Dosage/Unit Administered By Reason FENTANYL 04/13/2018 7:30:00 AM 50 mcg Omer Bentley 50 mcg FENTANYL given in lab by Omer Bentley RN via Peripheral IV. VERSED 04/13/2018 7:30:45 AM 2 mg Omer Bentley 2 mg VERSED given in lab by Omer Bentley, YESSENIA via Peripheral IV. 1% XYLOCAINE 04/13/2018 7:33:49 AM 20 mL Dante Head 20 mL 1% XYLOCAINE given in lab by Dante Head via Subcutaneous. NTG (IC) 04/13/2018 7:35:23 AM 200 mcg Dante Head 200 mcg NTG (IC) given in lab by Dante Head via Intra-coronary. HEPARIN 04/13/2018 7:36:02 AM 3000 units Omer Bentley 3000 units HEPARIN given in lab by Omer Bentley, YESSENIA via Peripheral IV. Medication (Drip) Medication Time Given Dosage/Unit Concentration/Unit Diluent (ml) Solution IV Solutions 04/13/2018 7:16:28 AM 50 mL (IV) NaCl .9 Patient arrived on IV Solutions via Peripheral IV. Pump/Drip Flow using NaCl .9. Initial Case Assessment Cardiovascular HR NIBP 53 147/91 Edema Present Skin color Skin None Normal Warm Dry Circulatory - Right Pulses Dorsalis Pedis Femoral Radial 2 3 2 Scale (0,1,2,3,4,d) Circulatory - Left Pulses Dorsalis Pedis Femoral Radial 2 3 Scale (0,1,2,3,4,d) Neurological State Oriented to time-place- Alert Moves all extremities person Respiration - General Respiration Rate SpO2 (%) (B/min) 14 97 Chronological Log Time Study Chronological Log 7:09:58 Patient Name, D.O.B, / Armband Verified By R.N. 7:09:59 Consent signed by the physician and the patient and verified by the Turf Manager staff. 7:10:02 Skin Breakdown-ok 7:10:56 Patient arrived via Bed. 7:16:21 Allens test performed on the right radial and ulnar artery. 7:16:23 Patient has been NPO for More than 6Hrs. 7:16:24 Patient Warmer Placed on the Table. 7:16:25 Sonali Prominences Protected 7:16:26 A # 20 IV was noted in the Antecubital (right). Grade = 0 7:16:28 Patient arrived on IV Solutions via Peripheral IV. Pump/Drip Flow using NaCl .9. 7:16:29 History and physical on the chart or being dictated. Assessment: Initial Case, HR=53 BPM, FVBD=504/91 mmhg, Edema=None, Color=Normal, Skin = Warm, D ry Right Pulses: Cecilio Ped=2, Femoral=3, Radial=2 7:16:32 Left Pulses: Cecilio Ped=2, Femoral=3 Neurological: State=Alert, Ox3, BRANTLEY Respiration: Resp=14 B/min, SpO2=97 % Vitals capture started with the following parameters, Patient=Adult, Interval=5 min, Initial Pr bdbdtp=180 mmHg, 7:16:53 Deflation Rate=5 mmHg, Cuff placed on Left Arm 7:17:29 HR=54 bpm, FZJP=258/91 mmhg, SpO2=93.0 %, Resp=21 B/min 7:20:57 Right Radial and groin(s) prepped with 2% chlorhexidine, and draped after a 3 min. waiting time. 7:22:21 Reference ECG taken 7:22:28 HR=51 bpm, FDAJ=713/87 mmhg, SpO2=97 %, Resp=15 B/min, Pain=0, Jeremiah=10, [place] Valle=2 7:27:29 HR=54 bpm, OXCW=169/88 mmhg, SpO2=97 %, Resp=19 B/min, Pain=0, Jeremiah=10, [place]=2 7:28:48 Pressure channel 2 zeroed. 7:29:24 MD arrived. Time Out. Correct patient, correct procedure, correct physician, labs, allergies, and equipment verified with microbiological lab technician 7:29:37 team present. Fire risk assesment completed (see hard stop sheet for coding). Time Out Concu rred by MD and individual staff in procedure. 7:30:00 50 mcg FENTANYL given in lab by Omer Bentley, YESSENIA via Peripheral IV. 7:30:01 Case Start 7:30:45 2 mg VERSED given in lab by Omer Bentley, YESSENIA via Peripheral IV. 7:32:30 HR=52 bpm, NFBM=245/86 mmhg, SpO2=97 %, Resp=17 B/min, Pain=0, Jeremiah=10, [place]=2 7:33:49 20 mL 1% XYLOCAINE given in lab by Dante Head via Subcutaneous. 7:34:19 Access site was Right Radial Artery . A SHEATH, FR6 RADIAL PRELUDE EASE 11CM FR 6 was advanced into the Radial (right) using the Светлана pena 7:35:19 technique. 7:35:23 200 mcg NTG (IC) given in lab by Dante Head via Intra-coronary. 7:35:24 In the Radial (right) the SHEATH, FR6 RADIAL PRELUDE EASE 11CM FR [address] by Dante Head. 7:36:02 3000 units HEPARIN given in lab by Omer Bentley, YESSENIA via Peripheral IV. A JR 5.0 INFINITI CATHETER FR 5 was advanced over a wire. OMNIPAQUE, 350 MG, 150ML 150ML was use d for 7:37:20 injections. 7:37:33 HR=59 bpm, ZNSG=203/77 mmhg, SpO2=91.0 %, Resp=17 B/min, Pain=0, Jeremiah=10, [place]=2 Recorded Pressure: Ao, HR=61, Condition=Condition 1 7:37:40 (Aorta) Ao 140/74/99 7:38:02 The RCA was injected and visualized at various angles. OMNIPAQUE, 350 MG, 150ML 150ML used. After removing the current catheter a JL 3.5 INFINITI CATHETER FR 5 was advanced over a WIRE, EX CHANGE 260CM 7:38:14 3MMJ 260CM. 7:40:18 The LCA was injected and visualized at various angles. OMNIPAQUE, 350 MG, 150ML 150ML used. 7:42:24 HR=53 bpm, CYAB=805/76 mmhg, SpO2=92 %, Resp=18 B/min, Pain=0, Jeremiah=10, Del Val[place]=2 7:46:37 Catheter was removed 7:46:52 Case End (Physician broke scrub) 7:47:25 HR=53 bpm, FIOE=961/72 mmhg, SpO2=86.0 %, Resp=19 B/min 7:49:27 Sheath removed Radial Compression Device Used. 11 mLs of air placed in BAND, RADIAL COMPRESSION TR SHORT 24 24C M. Affected 7:49:40 hand 90 % O2 saturation. 7:52:28 HR=51 bpm, GVQW=708/76 mmhg, Resp=20 B/min, Pain=0, Jeremiah=10, Del Val[place]=2 7:52:55 Vitals capture stopped. 7:56:03 No case complications noted. 7:56:11 A Left Heart Cath was performed. End Study - Contrast Media Used In Study Contrast Total Opened (mL) Total Used (mL) Total Wasted (mL) Hypaque 76 65 65 0 End Study - Maximum Contrast Load Max Contrast Load (mL) 640.2 End Study - Radiation Exposure Fluoro Time (minutes) 1.7 End Study - Patient Disposition Complications Transferred To No Telemetry Bed
[2018-04-13] MEDS ORDERED: Dextrose 50% in Water 50 ML Vial IV.PUSH PRN (08:37)
[2018-04-13] MEDS ORDERED: Insulin Regular (For Infusion) 100 UNIT in Sodium Chlor 0.9% Inj 99 ML IV.CONT PRN (08:37)
[2018-04-13] MEDS ORDERED: Chlorhexidine 4% Topical 120 APPLIC/120 ML Bottle TOPICAL SCH (08:45)
[2018-04-13] MEDS ORDERED: Sodium Chlor 0.9% Inj 77.5 ML, Papaverine Inj 60 MG, Nitroglycerin Inj 100 MCG, dilTIAZ... IRRIGATION SCH ×3 (08:45)
[2018-04-13] MEDS ORDERED: Sodium Chloride 0.9% Irr Bot 500 ML, ceFAZolin Inj 500 MG IRRIGATION SCH ×2 (08:45)
[2018-04-13] MEDS ORDERED: ceFAZolin Inj 2,000 MG in Sodium Chlor 0.9% Inj 80 ML IV.SIG SCH (09:00)
[2018-04-13] MEDS ORDERED: ceFAZolin 2 GM Premix Inj 2 GM/50 ML PIGGYBACK IV.SIG SCH (09:00)
[2018-04-13] MEDS: Sod Chloride 0.9% Inj 1,000 ML IV.CONT SCH (10:01)
[2018-04-13] MEDS: Sertraline 50 MG Tablet PO SCH (10:15)
[2018-04-13] MEDS: Calcium/Vitamin D 250/125 MG Tablet PO SCH (10:15)
--- NOTE | 2018-04-13 10:29 | P.PNCV ---
- Note Subjective/Hospital Course: Stable, denies chest pain Objective: Vital Signs - 24 hr 04/12/18 11:00 04/12/18 11:14 04/12/18 12:00 Temperature 97.9 F Pulse Rate 63 57 L 56 L Respiratory Rate 18 Blood Pressure 125/82 Pulse Oximetry 98 04/12/18 13:00 04/12/18 14:00 04/12/18 15:00 Temperature Pulse Rate 52 L 52 L 51 L Respiratory Rate Blood Pressure Pulse Oximetry 04/12/18 15:14 04/12/18 16:00 04/12/18 17:00 Temperature 97.9 F Pulse Rate 58 L 50 L 56 L Respiratory Rate 18 Blood Pressure 98/69 L Pulse Oximetry 96 04/12/18 18:00 04/12/18 19:00 04/12/18 20:00 Temperature 98.2 F Pulse Rate 78 57 L 55 L Respiratory Rate 20 Blood Pressure 109/68 Pulse Oximetry 97 04/12/18 21:00 04/12/18 22:00 04/12/18 23:00 Temperature Pulse Rate 58 L 58 L 55 L Respiratory Rate Blood Pressure Pulse Oximetry 04/13/18 00:00 04/13/18 01:00 04/13/18 02:00 Temperature 98.1 F Pulse Rate 53 L 55 L 53 L Respiratory Rate 20 Blood Pressure 120/92 H Pulse Oximetry 97 04/13/18 03:00 04/13/18 03:36 04/13/18 04:00 Temperature 98 F Pulse Rate 52 L 52 L 52 L Respiratory Rate 18 Blood Pressure 105/64 Pulse Oximetry 98 04/13/18 05:10 04/13/18 07:00 04/13/18 08:00 Temperature Pulse Rate 59 L 52 L 54 L Respiratory Rate Blood Pressure Pulse Oximetry Labs: Laboratory Results - last 12 hr 04/12/18 04/13/18 04/13/18 22:36 06:34 06:34 WBC 9.3 RBC 4.49 L Hgb 13.8 Hct 40.6 MCV 90.4 MCH 30.7 MCHC 34.0 RDW 15.2 Plt Count 295 MPV 8.9 APTT 38.3 H 50.7 H D Result Diagrams: 04/13/18 06:34 04/11/18 02:30 Imaging: Chest X-Ray 04/10/18 18:51 CONCLUSION: Mild diffuse bilateral interstitial opacities age indeterminate but most likely chronic. Hyperexpanded lungs. Cardiovascular: RRR Telemetry: NSR Pulmonary: CTA GI/: NABS Patient with NSTEMI and multivessel CAD. CABG recommended. I discussed risks and benefits of CABG with him and recommend he have this procedure TRACEY given recent symptoms and NSTEMI. Patient refuses CABG here and wants to travel back to his home in [place] for the procedure. I do not recommend this decision.
--- NOTE | 2018-04-13 10:30 | US ---
EXAM DATE: 04/13/2018 10:21 AM EST AGE/SEX: 67 years / Male INDICATIONS: Pre-Op CABG. CLINICAL DATA: This is the patient's initial encounter. Patient reports that signs and symptoms have been present for 1 day and indicates a pain score of 0/10. MEDICAL/SURGICAL HISTORY: Hypertension. Coronary artery stent. COMPARISON: No prior exams available for comparison. TECHNIQUE: Venous ultrasound of both lower extremities was performed from the inguinal ligament to t he proximal calf. Real-time, color Doppler and spectral tracing, compression and augmentation techni ques were used. FINDINGS: Right Leg: Normal compression of the deep venous system from the inguinal region to the proximal eitan f. No echogenic clot is seen. Normal response of the venous system to augmentation and respiration. Left Leg: Normal compression of the deep venous system from the inguinal region to the proximal calf . No echogenic clot is seen. Normal response of the venous system to augmentation and respiration. Other: None. CONCLUSION: 1. No DVT identified within either lower extremity. Electronically signed by: Kaden Tay MD 04/13/2018 10:28 AM EST
--- NOTE | 2018-04-13 10:31 | US ---
EXAM DATE: 04/13/2018 10:24 AM EST AGE/SEX: 67 years / Male INDICATIONS: Pre-Op CABG. CLINICAL DATA: This is the patient's initial encounter. Patient reports that signs and symptoms have been present for 1 day and indicates a pain score of 0/10. MEDICAL/SURGICAL HISTORY: Hypertension. Coronary artery stent. COMPARISON: [facility] [place] DOPPLER LEG BI, 04/13/2018. . MEASUREMENTS: The greater saphenous vein was measured throughout its course bilaterally. Measurements are listed below. RIGHT THIGH: Proximal:__4 mm Mid:__ 2 mm Distal:__3 mm LEFT THIGH: Proximal:__4 mm Mid:__2 mm Distal:__3 mm RIGHT CALF: Proximal:__1 mm Mid:__Non-visualized Distal:__Non-visualized LEFT CALF: Proximal:__3 mm Mid:__2 mm Distal:__Non-visualized FINDINGS: The venous system of the lower extremities are patent by color Doppler imaging. Measurements of the leg veins (in mm) are listed above. CONCLUSION: 1. Venous mapping as above. Electronically signed by: Kaden Tay MD 04/13/2018 10:29 AM EST
--- NOTE | 2018-04-13 10:46 | US ---
EXAM DATE: 04/13/2018 10:28 AM EST AGE/SEX: 67 years / Male INDICATIONS: Pre-Op CABG. CLINICAL DATA: This is the patient's initial encounter. Patient reports that signs and symptoms have been present for 1 day and indicates a pain score of 0/10. MEDICAL/SURGICAL HISTORY: Hypertension. Coronary artery stent. COMPARISON: No prior exams available for comparison. VELOCITY PARAMETERS: ICA/CCA Ratio: Right 1.2 , Left 1.6 ICA: Right 84 cm/sec, Left 197 cm/sec CCA: Right 72 cm/sec, Left 126 cm/sec ECA: Right 336 cm/sec, Left 294 cm/sec Vertebral: Right 33 cm/sec antegrade, Left 31 cm/sec antegrade FINDINGS: RIGHT CAROTID: There is no evidence for a hemodynamically significant carotid stenosis. Minimal int imal hyperplasia is present with scattered calcific plaque. LEFT CAROTID: There is no evidence for a hemodynamically significant carotid stenosis. Minimal inti mal hyperplasia is present with scattered calcific plaque. Flow is antegrade in both vertebral arteries. There are no ancillary masses or adenopathy. CONCLUSION: Negative examination for a hemodynamically significant carotid stenosis. Abundant plaque makes dose of emboli likely possibility. Jordan Tay MD FACR Electronically signed by: Jordan Tay MD 04/13/2018 10:44 AM EST
[2018-04-13] MEDS ORDERED: Iohexol 350 MG/ML 100 ML Vial (for Cath Lab) IVCONTRAST ONE (11:09)
[2018-04-13 11:30] LABS: Bilirubin,Urine Negative (Negative); Clarity,Urine Clear (Clear); Color,Urine Yellow (Yellw/Straw); Glucose,Urine (UA) Negative (Negative); Leukocyte Esterase,Urine Negative (Negative); Mucus,Urine Few /lpf (Occasional); Nitrite,Urine Negative (Negative); Specific Gravity,Urine 1.031 (1.002-1.035)
[2018-04-13] MEDS: Senna/Docusate Sodium 8.6/50 MG Tablet PO SCH (11:44)
--- NOTE | 2018-04-13 11:55 | P.DS ---
Date of admission: 04/10/18 20:34 Primary care physician: UNKNOWN Brief History from admission: This is a 67-year-old male with a PMH of HTN, CAD s/p Stent x12, Tobacco Abuse and h/o Hepatitis C who was brought to the ER for c/o chest pain. Pt reports sudden onset of substernal chest pain approx 30min prior to arrival, pain is moderate-severe, 8/10, w/ radiating to back and bilateral arms, +associated SOB. Lives in [place] and follows w/ [facility] back home, last stent approx 2006. On arrival, BP 178/113, HR 59, O2 sat 100% on RA, Afebrile. CBC unremarkable. INR 1.1. Chemistry unremarkable. Troponin negative. CXR with mild diffuse bilateral interstitial opacities likely chronic. Initial EKG noted to have ST elevations, STEMI Alert initiated by ER doc, however cancelled after eval by Dr. Head. Plan is for Heparin/NTG gtt and NPO for cath in am. Pt currently chest pain free on NTG DS: Diagnosis - Discharge Diagnosis (1) NSTEMI (non-ST elevated myocardial infarction) Status: Acute DS: Summary Hospital Course: NSTEMI Troponins have peaked at 0.56. Cardiology was consulted. The pt was continued on aspirin, beta-[place], heparin drip and statin. Echocardiogram showed systolic dysfunction with a EF of 35%. Lisinopril held due to borderline blood pressures. Catheterization showed: Left main coronary artery has minor luminal irregularities; Left anterior descending coronary has stents present in the proximal segment which has minor luminal irregularities; This mid segment of the left anterior descending coronary artery has some tortuosity but 80% stenosis present; The diagonal branch is small to moderate caliber size with a 90% ostial stenosis present; The distal left anterior descending coronary artery has a 90% tubular stenosis; The apical left anterior descending coronary artery is patent; The left circumflex has stents present in the obtuse marginal branch; There is 30 to maybe 40% stenosis in the proximal circumflex coronary artery; The obtuse marginal branch is widely patent; The right coronary has stents present through the entire proximal to mid and distal segment; The ostium of the right coronary artery has severe in-stent restenosis of 95%; The proximal to mid segment has 80% tubular in-stent restenosis; The remainder the posterior descending coronary artery and distal right coronary has mild luminal irregularities. Cardiovascular surgery was consulted and CABG was recommended. The patient did not want to pursue surgery at this time and opted to leave the hospital for further cardiac work-up as an outpatient. CTS reported that the patient may possibly be scheduled for surgery later this week. - Time Spent with Patient Total time spent providing and/or coordinating discharge services: Less than 30 minutes - Quality: AMI Clinical Trial Participant: No - Quality: VTE Deep Vein Thrombosis/Pulmonary Embolism Present on Admission: No Exam Vital signs: Vital Signs 04/12/18 12:00 04/12/18 13:00 04/12/18 14:00 Temperature Pulse Rate 56 L 52 L 52 L Respiratory Rate Blood Pressure Pulse Oximetry 04/12/18 15:00 04/12/18 15:14 04/12/18 16:00 Temperature 97.9 F Pulse Rate 51 L 58 L 50 L Respiratory Rate 18 Blood Pressure 98/69 L Pulse Oximetry 96 04/12/18 17:00 04/12/18 18:00 04/12/18 19:00 Temperature Pulse Rate 56 L 78 57 L Respiratory Rate Blood Pressure Pulse Oximetry 04/12/18 20:00 04/12/18 21:00 04/12/18 22:00 Temperature 98.2 F Pulse Rate 55 L 58 L 58 L Respiratory Rate 20 Blood Pressure 109/68 Pulse Oximetry 97 04/12/18 23:00 04/13/18 00:00 04/13/18 01:00 Temperature 98.1 F Pulse Rate 55 L 53 L 55 L Respiratory Rate 20 Blood Pressure 120/92 H Pulse Oximetry 97 04/13/18 02:00 04/13/18 03:00 04/13/18 03:36 Temperature 98 F Pulse Rate 53 L 52 L 52 L Respiratory Rate 18 Blood Pressure 105/64 Pulse Oximetry 98 04/13/18 04:00 04/13/18 05:10 04/13/18 07:00 Temperature Pulse Rate 52 L 59 L 52 L Respiratory Rate Blood Pressure Pulse Oximetry 04/13/18 08:00 Temperature Pulse Rate 54 L Respiratory Rate Blood Pressure Pulse Oximetry Intake & Output 04/12/18 04/13/18 04/13/18 18:59 06:59 18:59 Intake Total 2460 / 2460 1480 / 1480 1000 / 1000 Output Total 1100 / 1100 800 / 800 Balance 1360 / 1360 680 / 680 1000 / 1000 Weight 76.9 kg Intake: IV 1260 / 1260 1000 / 1000 1000 / 1000 Heparin/D5W 25,000 U/250 mL 25, 250 / 250 000 unit In 250 ml @ Per Protocol IV.CONT TITRATE PRN Rx #:[id number] Nitroglycerin Drip Premix 50 mg 10 / 10 In 250 ml @ Per Protocol IV. CONT TITRATE PRN Rx#:[id number] NS Inj 1,000 ML @ 100 mls/hr IV 1000 / 1000 1000 / 1000 1000 / 1000 .CONT .Q10H SHILA Rx#:[id number] Oral 1200 / 1200 480 / 480 Output: Urine 1100 / 1100 800 / 800 Other: Date of Last Bowel Movement 04/12/18 04/12/18 04/12/18 # Bowel Movements 3 0 Narrative: GENERAL: No apparent distress. SKIN: Warm and dry. HEAD: Normocephalic. EYES: No scleral icterus. No injection or drainage. NECK: Supple, trachea midline. No JVD or lymphadenopathy. CARDIOVASCULAR: Regular rate and rhythm without murmurs, gallops, or rubs. RESPIRATORY: Breath sounds equal bilaterally. No accessory muscle use. GASTROINTESTINAL: Abdomen soft, non-tender, nondistended. MUSCULOSKELETAL: No cyanosis, or edema. . Results Procedures completed during hospitalization: See hospital course Labs on day of discharge: Labs from last 24 hours 04/13/18 04/13/18 04/13/18 10:35 10:30 10:05 WBC RBC Hgb Hct MCV MCH MCHC RDW Plt Count MPV APTT Plt Funct P2Y12 Units Hemoglobin A1c Urine Color Yellow Urine Clarity Clear Urine pH 6.0 Ur Specific [place] 1.031 Urine Protein Negative Urine Glucose (UA) Negative Urine Ketones Negative Urine Occult Blood Negative Urine Nitrate Negative Urine Bilirubin Negative Urine Urobilinogen Less than 2 Ur Leukocyte Esterase Negative Urine RBC 1 Urine WBC 1 Urine Mucus Few H Micro UA Comment Culture not ind Ur Microscopic Review Not Reportable Urine Culture Comments Culture not ind Nasal Screen MRSA (PCR) Pending Blood Type A Positive Antibody Screen Pending 04/13/18 04/13/18 04/13/18 10:05 10:05 06:34 WBC RBC Hgb Hct MCV MCH MCHC RDW Plt Count MPV APTT 50.7 H D Plt Funct P2Y12 Units 257 Hemoglobin A1c Pending Urine Color Urine Clarity Urine pH Ur Specific [place] Urine Protein Urine Glucose (UA) Urine Ketones Urine Occult Blood Urine Nitrate Urine Bilirubin Urine Urobilinogen Ur Leukocyte Esterase Urine RBC Urine WBC Urine Mucus Micro UA Comment Ur Microscopic Review Urine Culture Comments Nasal Screen MRSA (PCR) Blood Type Antibody Screen 04/13/18 04/12/18 04/12/18 06:34 22:36 16:56 WBC 9.3 RBC 4.49 L Hgb 13.8 Hct 40.6 MCV 90.4 MCH 30.7 MCHC 34.0 RDW 15.2 Plt Count 295 MPV 8.9 APTT 38.3 H 45.5 H D Plt Funct P2Y12 Units Hemoglobin A1c Urine Color Urine Clarity Urine pH Ur Specific [place] Urine Protein Urine Glucose (UA) Urine Ketones Urine Occult Blood Urine Nitrate Urine Bilirubin Urine Urobilinogen Ur Leukocyte Esterase Urine RBC Urine WBC Urine Mucus Micro UA Comment Ur Microscopic Review Urine Culture Comments Nasal Screen MRSA (PCR) Blood Type Antibody Screen - Impressions ITS Impressions Chest X-Ray 04/10/18 18:51 CONCLUSION: Mild diffuse bilateral interstitial opacities age indeterminate but most likely chronic. Hyperexpanded lungs. Carotid Doppler Study 04/13/18 08:37 CONCLUSION: Negative examination for a hemodynamically significant carotid stenosis. Abundant plaque makes dose of emboli likely possibility. Jordan Tay MD FACR Lower Extremity Ultrasound 04/13/18 08:37 CONCLUSION: 1. Venous mapping as above. Venous Doppler Study 04/13/18 08:37 CONCLUSION: 1. No DVT identified within either lower extremity. Discharge Plan - Discharge Disposition Patient Disposition: 07 Against Medical Advice - Discharge Condition Condition: Serious - Discharge Order Discharge Orders: AMA Discharge (Routine); Ordered 04/13/18 Ordered By: Jose David Aguirre - Discharge Details Anticipated Discharge Date: 04/13/18 - Physicians Team Primary Care Provider: UNKNOWN, Attending Provider: Jose David Aguirre Other Providers: Dante Head MD ; Suzi Barboza MD
[2018-04-13 13:03] VITALS: RESP 20
[2018-04-13 13:04] VITALS: BP 114/46
--- NOTE | 2018-04-13 13:29 | MB ---
cc: Suzi Barboza MD DATE: 04/13/2018 HISTORY OF PRESENT ILLNESS: A 67-year-old male who presented to the emergency room with chest pain, 01/09, started about 30 minutes prior to arrival. The pain was radiating down his back and arms, associated with shortness of breath. The patient just recently came down to [place]. He has an RV that he [place]erman at [place] [place], was attempting to stay here for about 6 months out of the year. 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 He has had multiple stents. He states his last one, he thinks was in 2006, he is somewhat of a poor historian, then he said he thought it was 2012. He has approximately 12 stents. It was noted that his troponin was elevated at 0.56. They initially called a STEMI alert, which was canceled by Dr. Moreno. He then underwent cardiac catheterization today, which showed LAD coronary has stents present in the proximal segment. The mid segment of the LAD artery had some torturous 80% stenosis present. The diagonal was small to moderate with a 90% ostial stenosis. The distal LAD had a 90% tubular stenosis. The apical left anterior descending coronary stent was patent. The left circumflex also had stents present in the obtuse marginal, approximately 30-40% stenosis in the proximal circumflex coronary artery. The obtuse marginal branch is widely patent. There are also stents in the right coronary artery. The ostium of the right coronary artery has severe in-stent stenosis at 95% and in the mid proximal approximately 80%. Recommendation was for consideration for coronary artery bypass grafting. PAST MEDICAL HISTORY: Includes coronary artery disease with prior NC, stents, continued tobacco abuse, hepatitis C was treated with Harvoni. PAST SURGICAL HISTORY: Include coronary stenting. ALLERGIES: THE PATIENT HAS NO KNOWN ALLERGIES. HOME MEDICATIONS: Include: 1. Aspirin 81 mg. 2. Plavix 75 mg. 3. Hydrocodone. 4. Lisinopril 5. 5. Protonix. 6. Pravachol. 7. Calcium. 8. Metoprolol. 9. Sertraline. FAMILY HISTORY: Father at 60, unknown causes. Mother from old age. SOCIAL HISTORY: The patient is , 2 children. 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 His just recently retired, therefore they came down to [place] for 6 months of the year. REVIEW OF SYSTEMS: GENERAL: No night sweats, fever, heat and cold intolerance. SKIN: No psoriasis, itching or hives. HEENT: No blurred vision, hearing loss. RESPIRATORY: Positive for occasional shortness of breath. CARDIOVASCULAR: As above in the HPI. GASTROINTESTINAL: No diarrhea or vomiting. GENITOURINARY: No burning, frequency, urgency. CENTRAL NERVOUS SYSTEM: No history of TIA, CVA or seizure disorder. ENDOCRINOLOGY: No history of diabetes or hypothyroidism. PHYSICAL EXAMINATION: VITAL SIGNS: Blood pressure 105/60, heart rate of 60, temperature max , and O2 saturation 98 on room air. GENERAL: Awake, alert, in no acute distress. HEENT: Head is normocephalic, atraumatic. Pupils equal and reactive. Oral mucosa pink, moist. NECK: Supple. No JVD. He does have a positive bruit on the right. CARDIAC: Heart sounds S1, S2. Regular rate and rhythm. No audible rubs, murmurs or gallops. LUNGS: Clear to auscultation. No wheezes, rales or rhonchi. ABDOMEN: Soft, nontender. No masses or organomegaly. EXTREMITIES: Reveal no cyanosis. He is positive for clubbing in the fingers and toes. Plus distal pulses. IMAGING STUDIES: He has had a recent 2D echo, which showed an ejection fraction of 35-40%. No aortic stenosis or regurgitation. Some mild tricuspid regurgitation. LABORATORY DATA: Shows hemoglobin 13, hematocrit of 40, white cell count of 9.3, platelet count of 295. Sodium 142, potassium 3.8, BUN of 8, creatinine 0.66, glucose 108, AST 14, ALT 16. Troponin was elevated as high as 0.56. Triglycerides 99, cholesterol 113, LDL 61, HDL 33. ASSESSMENT AND PLAN: This is a 67-year-old male with multivessel disease, prior stenting x12 in the past with known coronary disease, prior NC, admitted with a non-STEMI, also continued tobacco abuse, hyperlipidemia. At this time, the patient was evaluated by Dr. Suzi Barboza, and the patient is refusing coronary artery bypass grafting here at [facility]. He wants to travel back home to [place] for this procedure. As you can note from Dr. Mccann, he did not recommend this decision. Since he was admitted, again with a non-STEMI and has multivessel disease, it would be high risk for traveling at this time. Dictated by YAMILETH Pruett I personally interviewed, examined, and discussed recommendations for CABG. He initially refused surgery but has reconsidered and is planning for CABG this week. MD QI Monroy/jennifer/turner , 11:34 AM , 11:42 AM ELISE
--- NOTE | 2018-04-13 15:06 | P.AMA ---
AMA Note - Diagnosis (1) NSTEMI (non-ST elevated myocardial infarction) Recommended Treatment Course: The patient was recommended to remain in the hospital for CABG but he declined and preferred to have it arranged as an outpatient. AMA Statement: Patient Humberto Mujica has decided to leave the hospital against medical advice. This patient has the capacity to refuse care and understands the risks of leaving, including permanent disability and/or , and has had an opportunity to ask questions about his/her condition. The patient has been informed that he/she may return for care at any time, and follow up has been arranged/advised. Discharge Disposition: Against Medical Advice Patient Condition on Discharge: Serious
[2018-04-13 16:11] VITALS: PULSE 56
[2018-04-13 17:31] LABS: Hemoglobin A1c 5.9 % (4.3-6.0)
== END 2018-04-13 16:00 | disposition left against medical advice (07) ==
LOC: NEPC 18:43 → NEDA 20:34 → HCIS 21:54
PROVIDERS: ADMIT Hospitalist; ATTEND Hospitalist